=== PATIENT | female | born 1940 | race Caucasian/White ===

== ENCOUNTER → 2017-10-22 12:15 | Outpatient (CLI) | payer MEDICARE, SELFPAY ==
[2017-10-22 13:27] LABS: Hemoglobin A1c 6.8 % (4.2-6.3)
== END ==
PROVIDERS: Family Provider Family Medicine; PCP Family Medicine; Visit Provider Family Medicine
DX: E11.9 Type 2 diabetes mellitus without complications (principal)
CPT/HCPCS: 36415; 83036

== ENCOUNTER → 2018-03-17 20:09 | Outpatient (CLI) | payer MEDICARE, SELFPAY | PROVIDERS: Family Provider Family Medicine; PCP Family Medicine; Visit Provider Clinical Nurse Specialist Acute Care | DX: G47.10 Hypersomnia, unspecified (principal) | CPT/HCPCS: 95810 ==

== ENCOUNTER → 2018-04-10 07:08 | Outpatient (CLI) | payer MEDICARE, SELFPAY ==
[2018-04-10 08:36] LABS: Hemoglobin A1c 6.4 % (4.2-6.3)
[2018-04-10 08:43] LABS: ALB/GLOB Ratio 0.9 RATIO (0.9-2.4); AST(SGOT) 13 U/L (15-37); Alanine Aminotransfer ALT/SGPT 9 U/L (13-56); Albumin, Serum 3.6 g/dL (3.2-5.0); Alkaline Phosphatase 67 U/L (45-117); Anion Gap 11 (5-15); BUN 30 mg/dL (7-18); BUN/Creat Ratio 27.3 RATIO (10-20); Chloride 104 mmol/L (98-107); Cholesterol 124 mg/dL (200); EST Glomerular Filtration Rate 51 mL/min (>60); Est Glom Filt Rate - Afr Amer 62 mL/min (>60); Glucose 114 mg/dL (74-106); High Density Lipoprotein 43 mg/dL; Potassium 4.5 mmol/L (3.5-5.1); Protein, Total 7.6 g/dL (6.4-8.2); Sodium Level 138 mmol/L (136-145); Triglycerides 229 mg/dL; Very Low Density Lipoprotein 46 mg/dL (5-40)
== END ==
PROVIDERS: Family Provider Family Medicine; PCP Family Medicine; Visit Provider Family Medicine
DX: E11.9 Type 2 diabetes mellitus without complications (principal); E78.5 Hyperlipidemia, unspecified; I10 Essential (primary) hypertension
CPT/HCPCS: 36415; 80053; 80061; 83036

== ENCOUNTER → 2018-04-28 20:21 | Outpatient (CLI) | payer MEDICARE, SELFPAY | PROVIDERS: Family Provider Family Medicine; PCP Family Medicine; Visit Provider Clinical Nurse Specialist Acute Care | DX: G47.33 Obstructive sleep apnea (adult) (pediatric) (principal) | CPT/HCPCS: 95810 ==

== ENCOUNTER → 2018-05-29 08:27 | Outpatient (CLI) | payer MEDICARE, SELFPAY ==
--- NOTE | 2018-05-29 08:29 | BI_ITS ---
MAMMOGRAPHY - BILATERAL DIAGNOSTIC REASON FOR EXAM: Female, 77 years old. Remote right lumpectomy with radiation treatment. Palpable abnormality at the surgical site. PERTINENT HISTORY: Personal history of breast cancer. TECHNIQUE: Digital bilateral breast ria (3D mammographic acquisition) in the CC and MLO projections. 2-D mediolateral oblique (MLO) and craniocaudad (CC) views of both breasts were obtained. CAD: Full Field Digital Mammography with Computer Added Detection was performed. COMPARISON: Comparison is made with prior examination in June 02, 2017. FINDINGS: Breast Composition: The breasts are almost entirely fatty. There is a 2.4 cm x 1.9 cm ill-defined nodular density with dense calcifications in the deep upper lateral portion of the right breast. This corresponds to the lumpectomy site. This most likely represents postoperative scarring. Since prior study, this appears to be denser and slightly enlarged. Correlation with ultrasound is recommended. No other significant abnormalities are identified. BI/DIAG MAMM W/CAD, BILAT IMPRESSION: Slight enlargement and increased density of the postlumpectomy site in the deep axillary region of the right breast. Correlation with ultrasound is recommended. ASSESSMENT CATEGORY: BIRADS Category 0: Incomplete. Need additional imaging evaluation. A letter regarding these results will be sent to the patient by the facility within 30 days. Approximately 10% of breast cancers are not detected by mammography. A normal mammogram should not delay biopsy of a clinically suspicious abnormality. Electronically Signed: Missael Munoz MD at 13:26 EDT Tel [phone], Service support ,
--- NOTE | 2018-05-29 09:28 | US_ITS ---
STUDY: ULTRASOUND BREAST - RIGHT REASON FOR EXAM: Female, 77 years old. Abnormal screening mammogram. Palpable abnormality in the area of prior lumpectomy. TECHNIQUE: Axial and longitudinal images of the RIGHT breast were performed with a high resolution ultrasound transducer. COMPARISON: Comparison is made with prior mammogram done earlier in the day and prior mammogram dated June 04, 2017. FINDINGS: RIGHT Breast: There is a 2.7 cm x 2.9 cm x 2.1 cm irregular ill-defined hypoechoic nodule with posterior acoustical shadowing at the 10:00 position breast at 4 cm from the nipple. This corresponds to the prior lumpectomy site. A biopsy is recommended. US/Breast Limited Unilateral IMPRESSION: Irregular hypoechoic mass with posterior acoustical shadowing at the 10:00 position breast at 4 cm from the nipple. A biopsy is recommended for further evaluation. ASSESSMENT CATEGORY: BIRADS Category 4: Suspicious - Biopsy Should Be Considered. A letter regarding these results will be sent to the patient by the facility within 30 days. Electronically Signed: Missael Munoz MD at 11:30 EDT Tel [phone], Service support ,
== END ==
PROVIDERS: Family Provider Family Medicine; PCP Family Medicine; Referring Provider Family Medicine; Visit Provider Family Medicine
DX: N63.12 Unspecified lump in the right breast, upper inner quadrant (principal)
CPT/HCPCS: 76642; 77062; 77066; G0279

== ENCOUNTER → 2018-12-30 | Outpatient (CLI) | payer MEDICARE, SELFPAY ==
[2018-12-30 08:40] VITALS: BMI 26.5
[2018-12-30 12:27] LABS: Hematocrit 34.8 % (37-47); Hemoglobin 10.6 g/dl (12.0-15.0); Mean Corp Hgb Conc 30.5 g/gl (32-36); Mean Corpuscular Hgb 22.4 pg (27.0-32.0); Mean Corpuscular Volume 73.4 fL (81-99); Mean Platelet Vol. 9.8 fl (6.2-12.0); Platelet Count 289 K/mm3 (150-450); RBC Distribution Width CV 17.1 % (11.6-14.6); RBC Distribution Width SD 44.8 fl (35.1-43.9); Red Blood Count 4.74 M/mm3 (4.2-5.4); Scan Indicated on CBC? Y/N YES- FLAGS NOTED; White Blood Count 8.8 K/mm3 (4.4-11.0)
[2018-12-30 12:41] LABS: ALB/GLOB Ratio 0.8 RATIO (0.9-2.4); AST(SGOT) 24 U/L (15-37); Alanine Aminotransfer ALT/SGPT 21 U/L (13-56); Albumin, Serum 3.6 g/dL (3.2-5.0); Alkaline Phosphatase 82 U/L (45-117); Anion Gap 9 (5-15); BUN 20 mg/dL (7-18); Calcium,Total 9.3 mg/dL (8.5-10.1); Chloride 104 mmol/L (98-107); Cholesterol 142 mg/dL (200); Creatinine, Serum 1.05 mg/dL (0.55-1.02); EST Glomerular Filtration Rate 54 mL/min (>60); Est Glom Filt Rate - Afr Amer 65 mL/min (>60); Globulin 4.4 g/dL (2.2-4.2); Glucose 118 mg/dL (74-106); High Density Lipoprotein 47 mg/dL; Potassium 5.1 mmol/L (3.5-5.1); Sodium Level 138 mmol/L (136-145); Triglycerides 173 mg/dL; Very Low Density Lipoprotein 35 mg/dL (5-40)
== END | disposition home or self-care (01) ==
PROVIDERS: Family Provider Family Medicine; PCP Family Medicine; Visit Provider Family Medicine
DX: G20 Parkinson's disease (principal); E78.5 Hyperlipidemia, unspecified
CPT/HCPCS: 36415; 80053; 80061; 85027

== ENCOUNTER → 2019-05-31 09:07 | Outpatient (CLI) | payer MEDICARE, SELFPAY ==
[2019-05-12 15:19] VITALS: BMI 26.5
--- NOTE | 2019-05-31 09:11 | EKG12_ITS ---
Test Reason : IRREG, HEART RATE Blood Pressure : / mmHG Vent. Rate : 067 BPM Atrial Rate : 067 BPM P-R Int : 150 ms QRS Dur : 072 ms QT Int : 422 ms P-R-T Axes : 002 -27 041 degrees QTc Int : 445 ms Normal sinus rhythm Normal ECG Confirmed by GIOVANA GARCIA, JD ([id number]), film and video editor SHARI DUNBAR ([id number]) on 06/01/2019 8:42:44 AM Referred By: RO Bryson Confirmed By:JD AKHTAR MD
== END ==
PROVIDERS: Family Provider Family Medicine; PCP Family Medicine; Referring Provider Clinical Nurse Specialist Acute Care; Visit Provider Clinical Nurse Specialist Acute Care
DX: I49.9 Cardiac arrhythmia, unspecified (principal)
CPT/HCPCS: 93005

== ENCOUNTER → 2019-06-30 09:15 | Outpatient (CLI) | payer MEDICARE, SELFPAY ==
[2019-06-30 08:49] VITALS: BMI 26.5
[2019-06-30 12:44] LABS: Absolute Lymphocyte Count 2.31 X10^3/uL (0.83-4.51); Absolute Neutrophil Count 4.2 X10^3/uL (2.0-7.7); Basophil# 0.05 X10^3/uL; Basophil% 0.7 % (0-1); Eosinophil# 0.11 X10^3/uL; Eosinophils% 1.5 % (0-5); Hematocrit 41.1 % (37-47); Hemoglobin 12.5 g/dL (12.0-15.0); Lymphocyte # 2.31 X10^3/ul (4.0); Lymphocyte % 31.1 % (19-41); Mean Corp Hgb Conc 30.4 g/dL (32-36); Mean Corpuscular Hgb 25.2 pg (27.0-32.0); Mean Corpuscular Volume 82.7 fL (81-99); Monocyte# 0.69 X10^3/uL; Monocyte% 9.3 % (0-10); NRBC Flagged by Analyzer 0 % (0-5); Neutrophil # 4.23 X10^3/uL (2.7-7.7); Neutrophil % 56.9 % (47-70); Platelet Count 212 K/mm3 (150-450); RBC Distribution Width CV 16.9 % (11.6-14.6); RBC Distribution Width SD 50.7 fl (35.1-43.9); Red Blood Count 4.97 M/mm3 (4.2-5.4); White Blood Count 7.4 K/mm3 (4.4-11.0)
[2019-06-30 13:09] LABS: Hemoglobin A1c 6.4 % (4.2-6.3)
[2019-06-30 13:25] LABS: ALB/GLOB Ratio 0.9 RATIO (0.9-2.4); AST(SGOT) 17 U/L (15-37); Alanine Aminotransfer ALT/SGPT 22 U/L (13-56); Albumin, Serum 3.9 g/dL (3.2-5.0); Alkaline Phosphatase 72 U/L (45-117); Anion Gap 9 (5-15); BUN 29 mg/dL (7-18); BUN/Creat Ratio 26.9 RATIO (10-20); Calcium,Total 9.5 mg/dL (8.5-10.1); Chloride 105 mmol/L (98-107); Cholesterol 169 mg/dL (200); Creatinine, Serum 1.08 mg/dL (0.55-1.02); EST Glomerular Filtration Rate 52 mL/min (>60); Est Glom Filt Rate - Afr Amer 63 mL/min (>60); Globulin 4.3 g/dL (2.2-4.2); Glucose 123 mg/dL (74-106); High Density Lipoprotein 53 mg/dL; Potassium 4.3 mmol/L (3.5-5.1); Protein, Total 8.2 g/dL (6.4-8.2); Sodium Level 137 mmol/L (136-145); Thyroid Stim Hormone (TSH) 1.46 uIU/mL (0.358-3.74); Triglycerides 239 mg/dL; Very Low Density Lipoprotein 48 mg/dL (5-40)
== END ==
PROVIDERS: Family Provider Family Medicine; PCP Family Medicine; Visit Provider Family Medicine
DX: E11.9 Type 2 diabetes mellitus without complications (principal); D64.9 Anemia, unspecified; I10 Essential (primary) hypertension; R53.83 Other fatigue
CPT/HCPCS: 36415; 80053; 80061; 83036; 84443; 85025

== ENCOUNTER → 2020-01-25 09:27 | Outpatient (CLI) | payer MEDICARE, SELFPAY ==
[2020-01-25 09:05] VITALS: BMI 26.5
[2020-01-25 09:34] LABS: Bacteria 0 SEEN /hpf (None Seen); Mucous, Urine 0 SEEN /hpf (<or=2+); Red Blood Cells-Urine 0 SEEN /hpf (0-5); White Blood Cells 0 SEEN /hpf (0-5)
[2020-01-25 12:51] LABS: Color, Urine Yellow (Yellow); Glucose, Dipstick Normal (Normal); Ketone-Dipstick Negative (Negative); Leukocyte Esterase-Dipstick 100 /ul (Negative); Nitrite-Dipstick Negative (Negative); Occult Blood-Urine 10 /ul (Negative); Protein-Dipstick 15 mg/dl (Negative); Specific Gravity, Urine 1.015 (1.002-1.030); Urine Bilirubin Dipstick Negative (Negative); Urine Clarity Sl. Cloudy (Clear); Urine Urobilinogen Normal (Normal)
[2020-01-25 13:04] LABS: Squamous Epithelial Cells - UA 0-5 SEEN /hpf (5-10)
== END ==
PROVIDERS: PCP Family Medicine; Referring Provider Family Medicine; Visit Provider Family Medicine
DX: R30.0 Dysuria (principal)
CPT/HCPCS: 81001

== ENCOUNTER → 2020-04-25 08:48 | Outpatient (CLI) | payer MEDICARE, SELFPAY ==
[2020-04-25 08:25] VITALS: BMI 31.6
[2020-04-25 08:50] LABS: Mucous, Urine 0 SEEN /hpf (<or=2+); Red Blood Cells-Urine 0 SEEN /hpf (0-5)
[2020-04-25 12:02] LABS: Color, Urine Straw (Yellow); Glucose, Dipstick Normal (Normal); Ketone-Dipstick Negative (Negative); Leukocyte Esterase-Dipstick 25 /ul (Negative); Nitrite-Dipstick Negative (Negative); Occult Blood-Urine Negative /ul (Negative); Protein-Dipstick Negative (Negative); Specific Gravity, Urine 1.015 (1.002-1.030); Urine Bilirubin Dipstick Negative (Negative); Urine Clarity Clear (Clear); Urine Urobilinogen Normal (Normal)
[2020-04-25 12:11] LABS: Bacteria 1+ /hpf (None Seen); Squamous Epithelial Cells - UA 0-5 SEEN /hpf (5-10); White Blood Cells 0-5 SEEN /hpf (0-5)
== END ==
PROVIDERS: PCP Family Medicine; Referring Provider Family Medicine; Visit Provider Family Medicine
DX: R30.0 Dysuria (principal)
CPT/HCPCS: 81001; 87086; 87088

== ENCOUNTER 2020-09-10 22:55 | Observation (INO) | payer MEDICARE, SELFPAY ==
[2020-08-08 14:08] VITALS: BMI 29.6
[2020-09-10 22:56] VITALS: BP 149/40; PULSE 90; RESP 18; TEMP 35.9; O2SAT 98; BMI 30.7
--- NOTE | 2020-09-10 23:08 | CT_ITS ---
HISTORY: BACK PAIN X 5 DAYS, N/T IN LEGS, HX PARKINSON'S, DIAB, HTN ADDITIONAL HISTORY: None provided. EXAMINATION/TECHNIQUE: CT Abdomen And Pelvis W/O Contrast Injection Enteric contrast was not given. Number of images including paperwork: 484. A radiation dose optimization technique was used for this scan. COMPARISON: No previous abdominal CT. CT chest 06/15/2012. FINDINGS: Evaluation of the abdominopelvic organs is limited in the absence of contrast. LOWER THORAX: No consolidation or pleural effusion. Minimal dependent atelectasis. Coronary calcification. Small hiatal hernia. Calcifications partially visualized in the lateral aspect of the right breast in region of previous collection. LIVER: No concerning focal lesion. Left lobe hepatic cyst. GALLBLADDER: No radiopaque calculi. BILE DUCTS: No significant biliary dilatation. SPLEEN: Unremarkable. PANCREAS: Unremarkable. ADRENAL GLANDS: Unremarkable. KIDNEYS/URETERS: Nonobstructing bilateral renal calculi measuring 3 mm on the right and 5 x 7 mm on the left. BOWEL: No bowel obstruction. No significant bowel wall thickening. No localized inflammation. Colonic diverticulosis. APPENDIX: No evidence of appendicitis. FREE FLUID: No significant free fluid. FREE AIR: None. LYMPH NODES: No pathologic appearing adenopathy. PERITONEUM, RETROPERITONEUM AND MESENTERY: Otherwise unremarkable. VASCULATURE: Unremarkable as imaged. ABDOMINAL WALL: Unremarkable. PELVIS: Bladder decompressed by Tipton catheter. Hysterectomy. OSSEOUS AND SOFT TISSUE STRUCTURES: No acute skeletal findings. Degenerative changes. CT/Abdomen/Pelvis without Cont IMPRESSION: 1. No acute abdominopelvic abnormality. 2. Nonobstructing bilateral renal calculi. 3. Nonspecific density with calcifications in the right breast. Follow-up dedicated breast imaging recommended. 4. Additional findings above. Individualized dose optimization techniques were used for this CT. at 0012 Reported and signed by: Shandra Hinds MD Electronically Signed: Shandra Hinds MD at 0:12 EST Tel , Service support ,
--- NOTE | 2020-09-10 23:10 | ED.VISSUMM ---
- ER Visit Summary Date of Service: 09/10/20 Chief Complaint: [Back pain] History of Present Illness: The patient is a 80 F [presents to the emergency department complaint of back pain that started for 5 days ago. Patient states that she has had sciatica intermittently for many years and she states that this feels similar only more severe. Patient complaining of pain on both sides of her back and buttocks radiating down both legs. She denies weakness in extremities. She denies any change in bowel or bladder function. Patient was too painful tonight to ambulate. She denies any trauma. She denies abdominal pain. She denies fever or recent illness. She has had urinary frequency. Patient has history of diabetes, hypertension, high cholesterol, and Parkinson's.] Physical Examination: [HEENT-PERRLA, EOMI. Cranial nerves II through XII grossly intact. TMs clear. Mucous membranes moist. No adenopathy. Cardiovascular-regular rate and rhythm without murmur or ectopy Lungs-clear to auscultation, chest wall stable without crepitus or subcu emphysema Abdomen-normoactive bowel sounds, soft, nontender, no rebound or rigidity, no peritoneal signs. Back exam-no significant tenderness over the thoracic or lumbar spine. Patient has some mild CVA tenderness bilaterally. Patient has some tenderness into both buttocks or area of piriformis muscles. She has negative straight leg raises. Deep tendon reflexes are plus out of 4 bilaterally at the patella and Achilles. Patient has normal 5 extension. Patient has normal sensation to light touch. Extremities-intact ?4, normal range of motion, normal pulses, atraumatic] Test Results: [BC with differential white of 8.8, hemoglobin 13, hematocrit 40, platelet 71. Chemistries unremarkable. Urinalysis was normal. CT flank showed a calcification in the right breast and nephrolithiasis without urolithiasis. Nothing else significant on exam.] Emergency Department Course and Treatment: [The line established. Patient was medicated with morphine and Zofran. Patient continued to experience significant pain was given a second dose of morphine.] Treatment Plan: [Admit for pain control and patient may need further imaging to evaluate further such as possibly MRI of the lumbar spine.] Disposition: [Admit] Impression: [Intractable back pain] This note was generated with [employer] software. It may contain incorrect words, spelling, and punctuation that were not noted in review of the chart prior to signing ED Disposition - Plan for ED Patient: Referrals: Otis Lagos DO [Primary Care Provider] -
[2020-09-10 23:25] LABS: Mucous, Urine 0 SEEN /hpf (<or=2+); Squamous Epithelial Cells - UA 0 SEEN /hpf (5-10); White Blood Cells 0 SEEN /hpf (0-5)
[2020-09-10 23:32] LABS: Color, Urine Yellow (Yellow); Glucose, Dipstick 100 mg/dl (Normal); Ketone-Dipstick 5 mg/dl (Negative); Leukocyte Esterase-Dipstick Negative /ul (Negative); Nitrite-Dipstick Negative (Negative); Occult Blood-Urine 50 /ul (Negative); Protein-Dipstick 100 mg/dl (Negative); Specific Gravity, Urine 1.015 (1.002-1.030); Urine Bilirubin Dipstick Negative (Negative); Urine Clarity Clear (Clear); Urine Urobilinogen Normal (Normal)
[2020-09-10] MEDS: Morphine 4 MG/ML Syringe IV (23:35)
[2020-09-10] MEDS: 0.9% Normal Saline 1,000 ML 150 ML IV (23:35)
[2020-09-10] MEDS: Ondansetron 4 MG/2 ML Vial IV (23:35)
[2020-09-10 23:38] LABS: Absolute Lymphocyte Count 0.66 X10^3/uL (0.83-4.51); Absolute Neutrophil Count 7.4 X10^3/uL (2.0-7.7); Basophil# 0.02 X10^3/uL; Basophil% 0.2 % (0-1); Eosinophil# 0.04 X10^3/uL; Eosinophils% 0.5 % (0-5); Hematocrit 40.3 % (37-47); Hemoglobin 13.1 g/dL (12.0-15.0); Lymphocyte # 0.66 X10^3/ul (4.0); Lymphocyte % 7.5 % (19-41); Mean Corp Hgb Conc 32.5 g/dL (32-36); Mean Corpuscular Hgb 26.4 pg (27.0-32.0); Mean Corpuscular Volume 81.1 fL (81-99); Mean Platelet Vol. 9.2 fl (6.2-12.0); Monocyte% 6.8 % (0-10); NRBC Flagged by Analyzer 0 % (0-5); Neutrophil # 7.43 X10^3/uL (2.7-7.7); Neutrophil % 84.4 % (47-70); Platelet Count 171 K/mm3 (150-450); RBC Distribution Width CV 15.6 % (11.6-14.6); RBC Distribution Width SD 45.9 fl (35.1-43.9); Red Blood Count 4.97 M/mm3 (4.2-5.4); White Blood Count 8.8 K/mm3 (4.4-11.0)
[2020-09-10 23:38] LABS: Bacteria 3+ /hpf (None Seen); Red Blood Cells-Urine 0-5 SEEN /hpf (0-5)
[2020-09-10 23:40] VITALS: BP 149/40
[2020-09-10 23:50] LABS: Anion Gap 11 (5-15); BUN 19 mg/dL (7-18); BUN/Creat Ratio 20.4 RATIO (10-20); Calcium,Total 9.1 mg/dL (8.5-10.1); Chloride 104 mmol/L (98-107); Creatinine, Serum 0.93 mg/dL (0.55-1.02); EST Glomerular Filtration Rate 61 mL/min (>60); Est Glom Filt Rate - Afr Amer 74 mL/min (>60); Estimated Creatinine Clearance 36.89 ml/min; Glucose 215 mg/dL (74-106); Potassium 3.7 mmol/L (3.5-5.1); Sodium Level 137 mmol/L (136-145)
[2020-09-11] VITALS (10 sets, daily range): BP systolic 150–205; BP diastolic 77–92; PULSE 75–85; RESP 16–18; TEMP 36.6–36.7; O2SAT 95–97; BMI 28.7; BMI 28.8
[2020-09-11] MEDS: Morphine 4 MG/ML Syringe IV (00:35)
--- NOTE | 2020-09-11 00:47 | HP.PCM_ITS ---
History of Present Illness Date of Admission: 09/11/20 Chief Complaint: back pain The patient is a 80 year old F with a PMH as outlined who was admitted with a complaint of back pain that started 5 days prior to admission. She has a history of sciatica, and said pain was in both hips, radiating down both legs. She denied any bladder or bowel incontinence. She came in to the ED because she was having more severe pain than usual. She denied any history of trauma. Review of systems was otherwise negative. Vitals in the ED showed temperature of 96.7 with blood pressure of 149/40 which went up to 185/80 9 L, pulse rate was 85 and respiratory rate was 18. She was saturating 87% on room air. Chemistry was essentially unremarkable and CBC was unremarkable. CT of the abdomen and pelvis showed no acute abdominopelvic pathology and no evidence of any kidney stones. She did have nonspecific density with calcifications in the right breast which were picked up on the CAT scan and follow-up dedicated breast imaging was recommended. No imaging was done of the lumbar spine. Pain was not responsive to pain medication, so she is being admitted to be managed for intractable back pain.[] Past Medical History Past Medical History (Chronic Problems): Chronic Problems (Last Reviewed 08/08/20 @ 14:[address] Otis Lagos DO) Parkinson disease (Chronic) Neuropathy (Chronic) Hyperlipidemia (Chronic) Hypertension (Chronic) Heart disease (Chronic) Hearing deficit (Chronic) Headache (Chronic) H/O emotional problems (Chronic) Diabetes (Chronic) Cataract (Chronic) Breast CA (Chronic) Arthralgia (Chronic) Medical History: Medical History (Last Reviewed 08/08/20 @ 14:[address] Otis Lagos DO) Parkinson disease (Chronic) G20 Neuropathy (Chronic) G62.9 Hyperlipidemia (Chronic) E78.5 Hypertension (Chronic) I10 Heart disease (Chronic) I51.9 Hearing deficit (Chronic) H91.90 Headache (Chronic) R51 H/O emotional problems (Chronic) F48.9 Diabetes (Chronic) E11.9 Cataract (Chronic) H26.9 Breast CA (Chronic) C50.919 Arthralgia (Chronic) M25.50 CATARACT REMOVAL Allergies amlodipine [From Norvasc] Allergy (Severe, Verified 09/10/20 22:56) Swelling celecoxib [From Celebrex] Allergy (Severe, Verified 09/10/20 22:56) Rash Home Medications: Ambulatory Orders Medication Instructions Recorded meclizine 12.5 mg tablet 12.5 mg PO TID PRN tab 08/31/18 sumatriptan succinate 50 mg tablet 50 mg PO ONCE PRN tab 08/31/18 clonazepam 0.125 mg disintegrating 0.125 mg PO QHS tab 01/25/20 tablet hydrochlorothiazide 12.5 mg capsule 12.5 mg PO QAM PRN cap 04/25/20 multivitamin 1 cap PO DAILY 04/25/20 apomorphine 10 mg/mL subcutaneous 0.3 ml SC DAILY ml 08/08/20 cartridge metformin 1,000 mg tablet 1,000 mg PO DAILY #90 tab 08/08/20 metoprolol succinate 100 mg 100 mg PO QDAY #90 tab 08/08/20 tablet,extended release 24 hr olmesartan 40 mg tablet 40 mg PO DAILY #90 tab 08/08/20 Carbidopa/Levodopa [Carbidopa-Levo 1 ea PO TID 09/10/20 ER 25-100 Tab] Ezetimibe/Simvastatin 1 tab PO DAILY 09/10/20 [Ezetimibe-Simvastatin 10-40 mg] Trimethobenzamide HCl [Tigan] 300 mg PO TID 09/10/20 Surgical History: Surgical History (Last Reviewed 08/08/20 @ 14:[address] Otis Lagos DO) History of breast biopsy Z98.890 2010, 07/08/18 History of hysterectomy Z90.710 Psychiatric History: No pertinent psych hx Lives: With Family Smoking Status: Never smoker Tobacco Use: Non-smoker Alcohol: None Drugs: None - *Family History Maternal Family History: Family History (Last Reviewed 08/08/20 @ 14:[address] Otis Lagos DO) Mother Arthritis Diabetes Heart disease Hypertension Hyperlipidemia Mental disorder Review of Systems Constitutional: Denies: Chills, Fever, Weight Change HEENT: Denies: Head Aches, Sinus Congestion, Sinus Drainage Cardiovascular: Denies: Chest Pain, Palpitations Respiratory: Denies: Cough, Shortness of Breath, Shortness of breath at rest, Sputum production Gastrointestinal: Denies: Abdominal Pain, Nausea, Vomiting Genitourinary: Denies: Dysuria Musculoskeletal: Reports: Back Pain. Denies: Joint Pain, Joint Tenderness Skin: Denies: Rash, Wounds Neurological: Denies: Numbness, Tingling, Focal weakness Psychiatric: Denies: Anxiety, Depression, Homicidal Ideations, Suicidal Ideations Hematologic/ Lymphatic: Denies: Easy Bruising, Easy Bleeding VTE Information - Inpt Only VTE Present on Admission: No VTE Pharm Prophylaxis ordered?: Yes - Physical Exam Vitals/I&O's: Vital Signs Temp Pulse Resp BP Pulse Ox 96.7 F L 85 18 185/89 H 97 09/10/20 22:56 09/11/20 00:31 09/11/20 00:31 09/11/20 00:31 09/11/20 00:31 Oxygen Delivery Method Room Air Weight: 168 lb Body Mass Index (BMI) 30.7 General: Alert, Oriented x3, Cooperative, No apparent distress HEENT: Atraumatic, PERRLA, EOMI, Normocephalic Oral: Moist Mucosa Neck: Supple, No JVD, Negative Carotid Bruits Lungs: Clear to auscultation, Normal air movement, No rhonchi, No wheeze, No rales Cardiovascular: Regular rate, Regular Rhythm, Normal S1, Normal S2, No murmurs Abdomen: Bowel Sounds Present, Soft, Non Tender, Non-Distended, No Hepato- splenomegaly Extremities: No edema, Capillary Refill Less than 3 Seconds Skin: No rashes, No breakdown Musculoskeletal: No Tenderness to Palpation of Joints or Extremities Lymphatic: No Cervical, Supraclavicular, or Inguinal Adenopathy Neurological: Cranial nerves II-XII grossly intact, Neuro grossly intact, Motor Exam 5/5 strength throughout Psych/Mental Status: Normal Affect, Appropriate, Alert and oriented to time, place, person, mood and affect Laboratory Results 09/10/20 23:20: Urine Color Yellow, Urine Clarity Clear, Urine pH 6.0, Ur Specific [place] 1.015, Urine Protein 100 H, Urine Glucose (UA) 100 H, Urine Ketones 5 H, Urine Occult Blood 50 H, Urine Nitrite Negative, Urine Bilirubin Negative, Urine Urobilinogen Normal, Ur Leukocyte Esterase Negative, Urine RBC 0-5 SEEN, Urine WBC 0 SEEN, Ur Squamous Epith Cells 0 SEEN, Urine Bacteria 3+, Urine Mucus 0 SEEN 09/10/20 23:25: WBC 8.8, RBC 4.97, Hgb 13.1, Hct 40.3, MCV 81.1, MCH 26.4 L, MCHC 32.5, RDW Std Deviation 45.9 H, RDW Coeff of Dwayne 15.6 H, Plt Count 171, MPV 9.2, Immature Gran % (Auto) 0.600, Neut % (Auto) 84.4 H, Lymph % (Auto) 7.5 L, [place] % (Auto) 6.8, Eos % (Auto) 0.5, Baso % (Auto) 0.2, Absolute Neuts (auto) 7.4, Absolute Lymphs (auto) 0.66 L, Nucleated RBC % 0 09/10/20 23:25: Sodium 137, Potassium 3.7, Chloride 104, Carbon Dioxide 22.0, Anion Gap 11, BUN 19 H, Creatinine 0.93, Estim Creat Clear Calc 36.89, Est GFR (MDRD) Af Amer 74, Est GFR (MDRD) Non-Af 61, BUN/Creatinine Ratio 20.4 H, Glucose 215 H, Calcium 9.1 Diagnostic Data Abdomen/Pelvis CT 09/10/20 23:08 IMPRESSION: 1. No acute abdominopelvic abnormality. 2. Nonobstructing bilateral renal calculi. 3. Nonspecific density with calcifications in the right breast. Follow-up dedicated breast imaging recommended. 4. Additional findings above. Individualized dose optimization techniques were used for this CT. at 0012 Reported and signed by: Shandra Hinds MD Electronically Signed: Shandra Hinds MD at 0:12 EST Tel , Service support , Current Medications Sodium Chloride () 1,000 mls @ 150 mls/hr IV .[id number] BENJAMIN Last Admin: 09/10/20 23:35 Dose: 150 mls/hr Documented by: Assessment/Plan 80 y/o admitted with a complaint of back pain #Intractable back pain * She does have a history of sciatica * CT of the abdomen and pelvis done was negative for any acute abdominal pelvic abnormality. Will get MRI of the lumbar spine to evaluate. * Admit to MedSurg. * IV morphine as needed as well as p.o. Tylenol and p.o. oxycodone as needed for pain * PT OT consult. Fall precautions. * #History of Parkinson's disease: On carbidopa levodopa #Hyperlipidemia: On simvastatin and ezetimibe #Hypertension: On hydrochlorothiazide and metoprolol as well as olmesartan #Type 2 diabetes mellitus: On Metformin. Insulin sliding scale. Checks AC at bedtime. DVT prophylaxis; lovenox Code status: full code * Patient counseled extensively about different types of CODE STATUS including full code, DNR CCA and DNR CCA. Patient elects to be full code. * Total uowx-ut-oqol time 17 minutes. Inpatient E&M: 33137 Init Hosp L3 Procedures: 91866 Advncd Care Plan 30 Min
[2020-09-11] MEDS: Acetaminophen 325 MG Tablet 650 MG PO ×2 (02:39→10:14)
[2020-09-11] MEDS: oxyCODONE 5 MG Tablet PO ×2 (02:39→10:14)
[2020-09-11] MEDS: Morphine 2 MG/ML Syringe IV ×2 (04:50→11:19)
--- NOTE | 2020-09-11 05:55 | MRI_ITS ---
STUDY: MRI LUMBAR SPINE WITH AND WITHOUT CONTRAST REASON FOR EXAM: Female, 80 years old. severe back and bilat leg pain x 5 days TECHNIQUE: Standardized fat and water weighted pulse sequences were obtained in the sagittal and axial planes. IV 14cc dotarem was administered for the contrast portion of the examination. COMPARISON: None FINDINGS: Normal lumbar lordosis. There is no substantial scoliosis. Normal conus medullaris that terminates at the L1. L1-2: There is moderate disc space narrowing and endplates spondylosis. Mild disc bulge and mild facet arthropathy without significant central canal or foraminal stenosis. L2-3: There is moderate disc space narrowing and endplates spondylosis. Moderate disc bulge and facet arthropathy with mild central canal stenosis. Mild right and mild left foraminal stenosis. L3-4: There is mild disc space narrowing and endplates spondylosis. Moderate facet arthropathy with grade 1 anterolisthesis and disc bulge with mild central canal stenosis. Mild right and mild left foraminal stenosis. There is minimal 1 anterolisthesis. L4-5: There is mild disc space narrowing and endplates spondylosis. Severe facet arthropathy with grade 1 anterolisthesis and disc bulge with mild central canal stenosis. Mild right and mild left foraminal stenosis. There is minimal 1 anterolisthesis. L5-S1: There is mild disc space narrowing and endplates spondylosis. Moderate disc osteophyte complex and facet arthropathy with mild central canal stenosis. Mild right and mild left foraminal stenosis. Normal visualized sacral ala. MRI/Spine Lumbar W/WO Contrast IMPRESSION: Moderate/severe multilevel degenerative changes. Electronically Signed: Alyssa Osei MD at 15:50 EST Tel , Service support ,
[2020-09-11] MEDS: Carbidopa/Levodopa 25/100 Tablet PO ×3 (06:32→18:27)
[2020-09-11] MEDS: 0.9% Normal Saline 1,000 ML 150 ML IV ×3 (06:33→21:14)
[2020-09-11 06:41] LABS: Bedside Glucose 141 mg/dL (70-110)
[2020-09-11 07:08] LABS: Absolute Lymphocyte Count 0.79 X10^3/uL (0.83-4.51); Absolute Neutrophil Count 3.4 X10^3/uL (2.0-7.7); Basophil# 0.02 X10^3/uL; Basophil% 0.4 % (0-1); Eosinophil# 0.04 X10^3/uL; Eosinophils% 0.8 % (0-5); Hematocrit 35.9 % (37-47); Hemoglobin 11.4 g/dL (12.0-15.0); Lymphocyte # 0.79 X10^3/ul (4.0); Lymphocyte % 16.1 % (19-41); Mean Corp Hgb Conc 31.8 g/dL (32-36); Mean Corpuscular Hgb 26.3 pg (27.0-32.0); Mean Corpuscular Volume 82.7 fL (81-99); Mean Platelet Vol. 9.2 fl (6.2-12.0); Monocyte# 0.58 X10^3/uL; Monocyte% 11.8 % (0-10); NRBC Flagged by Analyzer 0 % (0-5); Neutrophil # 3.44 X10^3/uL (2.7-7.7); Neutrophil % 70.3 % (47-70); Platelet Count 145 K/mm3 (150-450); RBC Distribution Width CV 15.3 % (11.6-14.6); RBC Distribution Width SD 46.6 fl (35.1-43.9); Red Blood Count 4.34 M/mm3 (4.2-5.4); White Blood Count 4.9 K/mm3 (4.4-11.0)
[2020-09-11 07:38] LABS: Anion Gap 6 (5-15); BUN 17 mg/dL (7-18); BUN/Creat Ratio 24.7 RATIO (10-20); Calcium,Total 8.4 mg/dL (8.5-10.1); Chloride 108 mmol/L (98-107); Creatinine, Serum 0.69 mg/dL (0.55-1.02); EST Glomerular Filtration Rate 87 mL/min (>60); Est Glom Filt Rate - Afr Amer 105 mL/min (>60); Glucose 135 mg/dL (74-106); Potassium 3.4 mmol/L (3.5-5.1); Sodium Level 139 mmol/L (136-145)
[2020-09-11] MEDS: Ezetimibe 10 MG Tablet PO (08:11)
[2020-09-11] MEDS: Losartan Potassium 100 MG Tablet PO (08:11)
[2020-09-11] MEDS: Metoprolol(XL)Succ 100 MG Tablet PO (08:11)
[2020-09-11] MEDS: Multivitamins,Therapeutic Tablet 1 TABLET PO (08:11)
[2020-09-11] MEDS: Enoxaparin 40 MG/0.4 ML Syringe SC (08:11)
--- NOTE | 2020-09-11 11:45 | CASEMGMT ---
RN CM attempted to complete assessment at this time. Patient out of room at this time. CM will attempt to complete assessment at later time.
[2020-09-11] MEDS: Insulin Lispro 100 UNIT/ML INSULN.PEN SC ×3 (13:04→22:09)
[2020-09-11 13:26] LABS: Bedside Glucose 201 mg/dL (70-110)
[2020-09-11] MEDS: Glucerna Shake 120 ML LIQUID PO ×3 (14:28→21:18)
--- NOTE | 2020-09-11 16:44 | CHAPLAIN ---
Type of Pastoral Visit _x__ Initial Visit ___ Follow-up Visit ___ On-call Visit ___ General Patient Visit ___ Spiritual Assessment ___ Family Conference ___ Bereavement ___ Rapid Response ___ Code Blue ___ Other (describe below) Pastoral Care Referral From _x__ Patient ___ Family ___ Nurse ___ Physician ___ Spouter ___ Fabric Lay Out Worker ___ Other (describe below) Sacrament/Intervention _x__ Active listening ___ Anointing ___ Buddhism ___ Bereavement ___ Communion ___ Mariama exploration ___ _x__ Life review _x__ Prayer ___ Reconciliation ___ Sacrament of Sick _x__ Supportive presence ___ Wedding ___ Other (describe below) Pastoral Comments patient expresses appreciation for visit and time to talk
[2020-09-11] MEDS: dexAMETHasone 4 MG/ML Vial IV (17:24)
[2020-09-11 18:01] LABS: Bedside Glucose 183 mg/dL (70-110)
--- NOTE | 2020-09-11 18:16 | PCM.HOSP.N ---
Hospitalist Note Patient was seen and examined today, MRI of the lumbar spine was carried out which showed no evidence of severe spinal stenosis or large disc rupture, I placed the patient today on IV dexamethasone, she will be seen by physical therapy and she will be need to be reevaluated tomorrow. I talked briefly with pain management, I will have them see her tomorrow to see if they feel she would benefit from any injection such as an epidural or nerve block.
[2020-09-11] MEDS: Atorvastatin Calcium 20 MG Tablet PO (21:14)
[2020-09-11] MEDS: hydroCHLOROthiazide 12.5mg 12.5 MG PO (21:14)
[2020-09-11] MEDS: clonazePAM 0.5 MG Tablet 0.125 MG PO (21:19)
[2020-09-11 22:26] LABS: Bedside Glucose 243 mg/dL (70-110)
[2020-09-12] VITALS (16 sets, daily range): BP systolic 129–210; BP diastolic 74–94; PULSE 66–90; RESP 16–20; TEMP 36.4–36.9; O2SAT 94–99
[2020-09-12] MEDS: dexAMETHasone 4 MG/ML Vial IV ×3 (00:36→11:24)
[2020-09-12] MEDS: 0.9% Saline Lock 10 ML Syringe IV ×6 (00:36→21:32)
[2020-09-12] MEDS: 0.9% Normal Saline 1,000 ML 150 ML IV (04:03)
[2020-09-12] MEDS: hydrALAZINE 20 MG/ML Vial 5 MG IV ×2 (04:14→15:39)
[2020-09-12] MEDS: Acetaminophen 325 MG Tablet 650 MG PO (05:34)
[2020-09-12] MEDS: Insulin Lispro 100 UNIT/ML INSULN.PEN SC ×4 (06:36→21:32)
[2020-09-12 06:55] LABS: Bedside Glucose 205 mg/dL (70-110)
[2020-09-12] MEDS: Glucerna Shake 120 ML LIQUID PO ×3 (08:02→21:30)
[2020-09-12] MEDS: Enoxaparin 40 MG/0.4 ML Syringe SC (08:02)
[2020-09-12] MEDS: Multivitamins,Therapeutic Tablet 1 TABLET PO (08:03)
[2020-09-12] MEDS: Carbidopa/Levodopa 25/100 Tablet PO ×3 (08:03→17:20)
[2020-09-12] MEDS: Metoprolol(XL)Succ 100 MG Tablet PO (08:05)
[2020-09-12] MEDS: Ezetimibe 10 MG Tablet PO (08:07)
--- NOTE | 2020-09-12 08:09 | PN_ITS ---
Reason for Visit: Follow-up on intractable back pain/uncontrolled hypertension Subjective: Patient was seen and examined. Her pain is much controlled. Blood pressure has been uncontrolled. Discussed her care with Dr. Darby, pain management, patient will be going for epidural injection tomorrow Objective: Physical exam: General: Alert, Oriented x3, Cooperative, No apparent distress HEENT: Atraumatic, PERRLA, EOMI, Normocephalic Oral: Moist Mucosa Neck: Supple, No JVD, Negative Carotid Bruits Lungs: Clear to auscultation, Normal air movement, No rhonchi, No wheeze, No rales Cardiovascular: Regular rate, Regular Rhythm, Normal S1, Normal S2, No murmurs Abdomen: Bowel Sounds Present, Soft, Non Tender, Non-Distended, No Hepato- splenomegaly Extremities: No edema, Capillary Refill Less than 3 Seconds Skin: No rashes, No breakdown Musculoskeletal: No Tenderness to Palpation of Joints or Extremities Lymphatic: No Cervical, Supraclavicular, or Inguinal Adenopathy Neurological: Cranial nerves II-XII grossly intact, Neuro grossly intact, Motor Exam 5/5 strength throughout Psych/Mental Status: Normal Affect, Appropriate, Alert and oriented to time, place, person, mood and affect Vitals/I&O's: Vital Signs Temp Pulse Resp BP Pulse Ox 98.4 F 66 18 185/85 H 99 09/12/20 07:54 09/12/20 08:05 09/12/20 07:54 09/12/20 07:54 09/12/20 07:54 Oxygen Delivery Method Room Air Weight: 71.3 kg Body Mass Index (BMI) 28.7 Intake and Output for Last 24 Hours 09/10/20 09/11/20 09/12/20 23:59 23:59 23:59 Intake Total 4407.5 / 4407.5 1600 / 1600 Output Total 2475 / 2475 1400 / 1400 Balance 1932.5 / 1932.5 200 / 200 Laboratory Results 09/11/20 12:59: POC Glucose 201 H 09/11/20 17:12: POC Glucose 183 H 09/11/20 22:08: POC Glucose 243 H 09/12/20 06:36: POC Glucose 205 H Current Medications Acetaminophen (Acetaminophen 325 Mg Tablet) 650 mg PO Q6H PRN PRN PRN Reason: Pain Score 1-10/Temp > 100.7 F Last Admin: 09/12/20 05:34 Dose: 650 mg Documented by: Atorvastatin Calcium (Atorvastatin Calcium 20 Mg Tablet) 20 mg PO QHS [facility] Last Admin: 09/11/20 21:14 Dose: 20 mg Documented by: Carbidopa/Levodopa (Carbidopa/Levodopa 25/100 Tablet) 1 tablet PO TIDPC [facility] Last Admin: 09/12/20 08:03 Dose: 1 tablet Documented by: Clonazepam (Clonazepam 0.5 Mg Tablet) 0.125 mg PO QHS [facility] Last Admin: 09/11/20 21:19 Dose: 0.125 mg Documented by: Dexamethasone Sodium Phosphate (Dexamethasone 4 Mg/Ml Vial) 4 mg IV Q6 [facility] Last Admin: 09/12/20 05:34 Dose: 4 mg Documented by: Ezetimibe (Ezetimibe 10 Mg Tablet) 10 mg PO DAILY [facility] Last Admin: 09/12/20 08:07 Dose: 10 mg Documented by: Enoxaparin Sodium (Enoxaparin 40 Mg/0.4 Ml Syringe) 40 mg SC DAILY [facility] Last Admin: 09/12/20 08:02 Dose: 40 mg Documented by: Hydralazine HCl (Hydralazine 25 Mg Tablet) 25 mg PO BID [facility] Hydralazine HCl (Hydralazine 20 Mg/Ml Vial) 5 mg IV Q6H PRN PRN PRN Reason: SBP>160 OR DBP > 120 Hydrochlorothiazide (Hydrochlorothiazide 12.5mg) 12.5 mg PO DAILY PRN PRN PRN Reason: bp Last Admin: 09/11/20 21:14 Dose: 12.5 mg Documented by: Sodium Chloride () 250 mls @ 15 mls/hr IV .[id number] PRN PRN Reason: Saline Flush Sodium Chloride () 250 mls @ 15 mls/hr IV .[id number] PRN PRN Reason: Additional IVPB Infusion Insulin Human Lispro (Insulin Lispro 100 Unit/Ml Insuln.Pen) 0 unit SC [facility]; Protocol Last Admin: 09/12/20 06:36 Dose: 2 units Documented by: Losartan Potassium (Losartan Potassium 100 Mg Tablet) 100 mg PO DAILY [facility] Last Admin: 09/11/20 08:11 Dose: 100 mg Documented by: Meclizine HCl (Meclizine 12.5 Mg Tablet) 12.5 mg PO TID PRN PRN Reason: DIZZINESS Metformin HCl (Metformin Hcl 1,000 Mg Tablet) [facility] Metoprolol Succinate (Metoprolol(Xl)Succ 100 Mg Tablet) 100 mg PO DAILY [facility] Last Admin: 09/12/20 08:05 Dose: 100 mg Documented by: Morphine Sulfate (Morphine 2 Mg/Ml Syringe) 2 mg IV Q3H PRN PRN PRN Reason: Pain Score 6-10 Last Admin: 09/11/20 11:19 Dose: 2 mg Documented by: Multivitamins (Multivitamins,Therapeutic Tablet) 1 tablet PO DAILY@0800 [facility] Last Admin: 09/12/20 08:03 Dose: 1 tablet Documented by: Non-Formulary Medication (Apomorphine Hcl [Apokyn]) 0.3 ml SC TID PRN PRN Reason: parkinson's symptoms Non-Formulary Medication (Trimethobenzamide Hcl [Tigan]) 300 mg PO TIDPC [facility] Last Admin: 09/12/20 08:06 Dose: 300 mg Documented by: Nutritional Formula (Lactose Free) (Glucerna Shake 120 Ml Liquid) 120 ml PO 4X/DAY [facility] Last Admin: 09/12/20 08:02 Dose: 120 ml Documented by: Ondansetron HCl (Ondansetron 4 Mg/2 Ml Vial) 4 mg IV Q8H PRN PRN PRN Reason: NAUSEA/VOMITING Oxycodone HCl (Oxycodone 5 Mg Tablet) 5 mg PO Q4H PRN PRN PRN Reason: Pain Score 4-5 Last Admin: 09/11/20 10:14 Dose: 5 mg Documented by: Rizatriptan Benzoate (Rizatriptan Benzoate 10 Mg Tablet) 10 mg PO DAILY PRN PRN PRN Reason: MIGRAINE SYMPTOMS Sodium Chloride (0.9% Saline Lock 10 Ml Syringe) 10 - 40 ml IV UD PRN PRN Reason: SALINE FLUSH Last Admin: 09/12/20 05:34 Dose: 10 ml Documented by: STROKE Vital Signs/Narrative: Vital Signs Temp Pulse Resp BP BP Pulse Ox 09/12/20 08:05 66 09/12/20 07:54 98.4 F 66 18 185/85 H 99 09/12/20 07:44 70 09/12/20 04:31 71 18 166/75 H 97 09/12/20 04:14 73 181/91 H Medical Necessity - Tobacco Use Smoking Status: Never smoker Tobacco Use: Non-smoker Assessment/Plan 1. Acute on chronic intractable back pain, CT of the abdomen and pelvis was unremarkable. Lumbar spine MRI showed moderate or severe multilevel degenerative changes Pain management consulted, recommended epidural injection tomorrow Lovenox on hold 2. Hypertension, blood pressures have been uncontrolled, continue on hydrochlorothiazide, losartan, metoprolol Add hydralazine 25 mg p.o. twice daily 3. Type II DM, sugars are uncontrolled likely secondary to steroids, on Metformin Will check HbA1c, continue on high-dose insulin sliding scale, continue Metformin 4. Parkinson's disease, continue on Sinemet 5. Hyperlipidemia, continue on statin 6. Abnormal breast calcification, right, seen on CT of the abdomen and pelvis Outpatient mammogram recommended 7. DVT prophylaxis -Off Lovenox for epidural procedure tomorrow Inpatient E&M: 53555 Subs Hosp L2
[2020-09-12] MEDS: Losartan Potassium 100 MG Tablet PO (08:20)
[2020-09-12] MEDS: hydrALAZINE 25 MG Tablet PO ×2 (08:23→21:40)
[2020-09-12 08:26] LABS: Absolute Neutrophil Count 4.6 X10^3/uL (2.0-7.7); Basophil# 0.01 X10^3/uL; Basophil% 0.2 % (0-1); Hematocrit 39.4 % (37-47); Hemoglobin 12.4 g/dL (12.0-15.0); Lymphocyte % 14.4 % (19-41); Mean Corp Hgb Conc 31.5 g/dL (32-36); Mean Corpuscular Hgb 25.9 pg (27.0-32.0); Mean Corpuscular Volume 82.3 fL (81-99); Mean Platelet Vol. 8.9 fl (6.2-12.0); Monocyte# 0.14 X10^3/uL; Monocyte% 2.5 % (0-10); NRBC Flagged by Analyzer 0 % (0-5); Neutrophil # 4.57 X10^3/uL (2.7-7.7); Platelet Count 173 K/mm3 (150-450); RBC Distribution Width CV 15.7 % (11.6-14.6); RBC Distribution Width SD 46.8 fl (35.1-43.9); Red Blood Count 4.79 M/mm3 (4.2-5.4); White Blood Count 5.6 K/mm3 (4.4-11.0)
[2020-09-12 08:41] LABS: ALB/GLOB Ratio 0.9 RATIO (0.9-2.4); AST(SGOT) 36 U/L (15-37); Alanine Aminotransfer ALT/SGPT 36 U/L (13-56); Albumin, Serum 3.4 g/dL (3.2-5.0); Alkaline Phosphatase 75 U/L (45-117); Anion Gap 7 (5-15); BUN 17 mg/dL (7-18); BUN/Creat Ratio 24.8 RATIO (10-20); Calcium,Total 8.9 mg/dL (8.5-10.1); Chloride 109 mmol/L (98-107); Creatinine, Serum 0.69 mg/dL (0.55-1.02); EST Glomerular Filtration Rate 87 mL/min (>60); Est Glom Filt Rate - Afr Amer 105 mL/min (>60); Globulin 3.9 g/dL (2.2-4.2); Glucose 183 mg/dL (74-106); Potassium 3.6 mmol/L (3.5-5.1); Protein, Total 7.3 g/dL (6.4-8.2); Sodium Level 138 mmol/L (136-145)
[2020-09-12 10:55] LABS: Bedside Glucose 306 mg/dL (70-110)
--- NOTE | 2020-09-12 11:45 | NURSING ---
CM Note: RN CM Face to Face with patient for initial transition planning/care coordination assessment. RN CM introduced self and role at [facility]. Patient sitting in chair, alert and oriented. Patient willing to participate in assessment and is able to answer all questions appropriately. Care providers, pharmacy, and demographics verified. Patient wishes to discharge home, denies need for home health at this time. Patient states she has no further needs or concerns at this time. CM to follow for discharge planning needs that may arise. PCP: [facility]: Reports she sees a Parkinson's doctor but is unable to recall the name [facility] Insurance: [employer] Prescription Benefit: yes Living Will/HPOA: no LNOK: daughter Living Arrangements: Patient lives with her daughter and son in law in a [place] home. Patient has 13 steps with rails to get to main floor of home. Patient states she was independent with ADL's at home. Transportation: daughter DME/HHC: Patient states she has a shower chair, raised toilet seat, walker and rollator at home. No further anticipated DME needs at md. Patients states she has previously done outpatient therapy and will resume at discharge, daughter will schedule appointment. Disposition Plan: Patient to discharge home with outpatient therapy, family support, and follow-up plans in place.
--- NOTE | 2020-09-12 11:59 | CASEMGMT ---
DOMINIQUE ALMAGUER attempted to complete PROCTOR form with patient. DOMINIQUE ALMAGUER explained PROCTOR form to patient. Patient prefers that CM review form with daughter Britt because her daughter handles her affairs for her. DOMINIQUE ALMAGUER attempted to call daughter Britt to review PROCTOR form via telephone. No answer, voice message left with return contact information. CM will attempt again at later time.
--- NOTE | 2020-09-12 12:10 | CASEMGMT ---
DOMINIQUE ALMAGUER received call back from daughter Britt. DOMINIQUE ALMAGUER explained PROCTOR form to daughter Britt over the phone. Britt voiced understanding of PROCTOR form and telephone consent given. DOMINIQUE ALMAGUER filed PROCTOR form and chart and patient provided with copy of PROCTOR form.
[2020-09-12 12:32] LABS: Hemoglobin A1c 6.8 % (3.8-5.6)
[2020-09-12 16:06] LABS: Bedside Glucose 215 mg/dL (70-110)
[2020-09-12] MEDS: metFORMIN HCl 1,000 MG Tablet 1000 MG PO (17:20)
[2020-09-12] MEDS: hydroCHLOROthiazide 12.5mg 12.5 MG PO (18:28)
[2020-09-12] MEDS: clonazePAM 0.5 MG Tablet 0.125 MG PO (21:39)
[2020-09-12] MEDS: Atorvastatin Calcium 20 MG Tablet PO (21:40)
[2020-09-12 21:45] LABS: Bedside Glucose 207 mg/dL (70-110)
[2020-09-13] VITALS (8 sets, daily range): BP systolic 126–164; BP diastolic 57–92; PULSE 73–86; RESP 16–18; TEMP 36.4–36.7; O2SAT 96–99
[2020-09-13] MEDS: hydrALAZINE 20 MG/ML Vial 5 MG IV (00:46)
[2020-09-13] MEDS: 0.9% Saline Lock 10 ML Syringe IV (00:47)
[2020-09-13] MEDS: Acetaminophen 325 MG Tablet 650 MG PO (02:32)
[2020-09-13] MEDS: oxyCODONE 5 MG Tablet PO (05:22)
[2020-09-13 06:36] LABS: Bedside Glucose 128 mg/dL (70-110)
[2020-09-13 06:50] LABS: Absolute Lymphocyte Count 1.99 X10^3/uL (0.83-4.51); Absolute Neutrophil Count 4.8 X10^3/uL (2.0-7.7); Basophil# 0.02 X10^3/uL; Basophil% 0.3 % (0-1); Eosinophil# 0.01 X10^3/uL; Eosinophils% 0.1 % (0-5); Hematocrit 38.1 % (37-47); Hemoglobin 12.1 g/dL (12.0-15.0); Lymphocyte # 1.99 X10^3/ul (4.0); Lymphocyte % 25.6 % (19-41); Mean Corp Hgb Conc 31.8 g/dL (32-36); Mean Corpuscular Volume 81.8 fL (81-99); Monocyte# 0.88 X10^3/uL; Monocyte% 11.3 % (0-10); NRBC Flagged by Analyzer 0 % (0-5); Neutrophil # 4.81 X10^3/uL (2.7-7.7); Neutrophil % 61.9 % (47-70); Platelet Count 213 K/mm3 (150-450); RBC Distribution Width CV 15.8 % (11.6-14.6); Red Blood Count 4.66 M/mm3 (4.2-5.4); White Blood Count 7.8 K/mm3 (4.4-11.0)
[2020-09-13 07:17] LABS: ALB/GLOB Ratio 0.9 RATIO (0.9-2.4); AST(SGOT) 33 U/L (15-37); Alanine Aminotransfer ALT/SGPT 43 U/L (13-56); Albumin, Serum 3.3 g/dL (3.2-5.0); Alkaline Phosphatase 67 U/L (45-117); Anion Gap 8 (5-15); BUN 27 mg/dL (7-18); BUN/Creat Ratio 34.4 RATIO (10-20); Calcium,Total 9.2 mg/dL (8.5-10.1); Chloride 105 mmol/L (98-107); Creatinine, Serum 0.78 mg/dL (0.55-1.02); EST Glomerular Filtration Rate 75 mL/min (>60); Est Glom Filt Rate - Afr Amer 90 mL/min (>60); Globulin 3.7 g/dL (2.2-4.2); Glucose 131 mg/dL (74-106); Potassium 3.8 mmol/L (3.5-5.1); Sodium Level 136 mmol/L (136-145)
--- NOTE | 2020-09-13 09:35 | PCM.DC ---
- Discharge Diagnoses Reason(s) for Visit for Discharge Instructions: Acute on chronic back pain You will use the following diet at home:: Calorie/Carbohydrate Controlled (specify 1200, 1400, etc) - 1800 calories, Cardiac Your food should be the consistency of: Regular Your liquids should be the consistency of: Regular/Thin Discharge Activity: Return to Normal Activity Additional Instructions: Continue on your medication. Take note of changes to the medication. Measure your blood pressure every day. Follow-up with your primary care doctor within 1 to 2 weeks for blood pressure medication changes. Follow-up with Dr. Darby as soon as possible for evaluation of your back pain. Allergies/Adverse Reactions: Allergies amlodipine [From Norvasc] Allergy (Severe, Verified 09/10/20 22:56) Swelling celecoxib [From Celebrex] Allergy (Severe, Verified 09/10/20 22:56) Rash Medications to take at Discharge meclizine 12.5 mg tablet 12.5 mg PO TID PRN tab 08/31/18 sumatriptan succinate 50 mg tablet 50 mg PO ONCE PRN tab 08/31/18 clonazepam 0.125 mg disintegrating tablet 0.125 mg PO QHS tab 01/25/20 hydrochlorothiazide 12.5 mg capsule 12.5 mg PO QAM PRN cap 04/25/20 multivitamin 1 cap PO DAILY 04/25/20 apomorphine 10 mg/mL subcutaneous cartridge 0.3 ml SC DAILY ml 08/08/20 metoprolol succinate 100 mg tablet,extended release 24 hr 100 mg PO QDAY #90 tab 08/08/20 olmesartan 40 mg tablet 40 mg PO DAILY #90 tab 08/08/20 Carbidopa/Levodopa [Carbidopa-Levo ER 25-100 Tab] 1 ea PO TID 09/10/20 Ezetimibe/Simvastatin [Ezetimibe-Simvastatin 10-40 mg] 1 tab PO DAILY 09/10/20 Trimethobenzamide HCl [Tigan] 300 mg PO TID 09/10/20 Bedside commode See Rx Instructions .ROUTE .MEDSUPPLY #1 ea 09/12/20 lift chair See Rx Instructions .ROUTE .MEDSUPPLY #1 ea 09/12/20 shower chair See Rx Instructions .ROUTE .MEDSUPPLY #1 ea 09/12/20 Acetaminophen [Tylenol Tablet] 650 mg PO Q6H PRN PRN tab 09/13/20 Bisacodyl [Gentle Laxative] 5 mg PO DAILY PRN 30 Days #30 tab 09/13/20 Dexamethasone [Decadron] 4 mg PO DAILY@0800 5 Days #5 tablet 09/13/20 Glucerna Shake 120 ml PO 4X/DAY 30 Days #120 liquid 09/13/20 Oxycodone [Oxyir] 5 mg PO Q4H PRN PRN 5 Days #20 tablet 09/13/20 Sennosides/Docusate Sodium [Senna-Docusate Sodium Tablet] 1 ea PO DAILY PRN 30 Days #30 tab 09/13/20 hydrALAZINE [Apresoline] 50 mg PO BID 30 Days #60 tab 09/13/20 metFORMIN HCl [Glucophage] 1,000 mg PO BIDCM 30 Days #60 tab 09/13/20 The following prescriptions were given: hydrALAZINE [Apresoline] 50 mg PO BID 30 Days #60 tab Dexamethasone [Decadron] 4 mg PO DAILY@0800 5 Days #5 tablet Bisacodyl [Gentle Laxative] 5 mg PO DAILY PRN 30 Days #30 tab PRN Reason: Constipation Transmission Status: Pending to [id number] Glucerna Shake 120 ml PO 4X/DAY 30 Days #120 liquid metFORMIN HCl [Glucophage] 1,000 mg PO BIDCM 30 Days #60 tab Oxycodone [Oxyir] 5 mg PO Q4H PRN PRN 5 Days #20 tablet PRN Reason: Pain Score 6-10 Transmission Status: Sent to [id number] Sennosides/Docusate Sodium [Senna-Docusate Sodium Tablet] 1 ea PO DAILY PRN 30 Days #30 tab PRN Reason: Constipation Transmission Status: Pending to [facility] Primary Care Physician: Otis Lagos DO [Primary Care Provider] - Please follow up with your Primary Care Physician in: within 1-2 weeks Test Results: Test results from this visit will be discussed in further detail at your follow-up appointment, if applicable. Please Follow Up With: Branden Darby MD When: as scheduled Proposed Discharge Date: 09/13/20
--- NOTE | 2020-09-13 09:37 | PCM.DC.SUM ---
Discharge Date and Diagnosis Date of Admission: 09/11/20 Date of Discharge: 09/13/20 - Primary Discharge Diagnosis Acute Problems: Acute on chronic intractable back pain Uncontrolled hypertension Hyperglycemia, uncontrolled type II DM - Secondary Discharge Diagnosis Chronic Problems: Chronic Problems (Last Reviewed 08/08/20 @ 14:[address] Otis Lagos, DO) Parkinson disease (Chronic) Neuropathy (Chronic) Hyperlipidemia (Chronic) Hypertension (Chronic) Heart disease (Chronic) Hearing deficit (Chronic) Headache (Chronic) H/O emotional problems (Chronic) Diabetes (Chronic) Cataract (Chronic) Breast CA (Chronic) Arthralgia (Chronic) Hospital Course and Treatment Imaging Results: Clinical Impression(s) from Imaging Studies Abdomen/Pelvis CT 09/10/20 23:08 IMPRESSION: 1. No acute abdominopelvic abnormality. 2. Nonobstructing bilateral renal calculi. 3. Nonspecific density with calcifications in the right breast. Follow-up dedicated breast imaging recommended. 4. Additional findings above. Individualized dose optimization techniques were used for this CT. at 0012 Reported and signed by: Shandra Hinds MD Electronically Signed: Shandra Hinds MD at 0:12 EST Tel , Service support , Lumbar Spine MRI 09/11/20 05:55 IMPRESSION: Moderate/severe multilevel degenerative changes. Electronically Signed: Alyssa Osei MD at 15:50 EST Tel , Service support , None Operations: None Procedures: None Summary of Care Provided: The patient is a 80 year old F with past medical history of Parkinson's disease, hypertension, hyperlipidemia who presented with acute back pain that started 5 days prior to admission. Patient has chronic back pain/sciatica with radiation down both legs. She denied any bowel or bowel incontinence. Her pain was uncontrolled. In the emergency department, her work-up was unremarkable. CT of the abdomen and pelvis showed no abdominal/pelvic pathology. Her CT scan of the abdomen showed calcification in the breast. Follow-up was recommended from her primary care doctor follow-up mammogram. Lumbar spine MRI showed moderate to severe multilevel degenerative changes. Patient was admitted for intractable back pain. She was continued on pain medications as well as dexamethasone IV. She continued to do well. Pain management was consulted on patient and offered to do an epidural for pain control. Patient however insisted that her pain was controlled at the time of being seen. Subsequently during the night, her pain became uncontrolled. She was discharged on pain medication and short course of dexamethasone. She was recommended to follow-up with pain management in the outpatient. Discharge plan was communicated to her daughter. Subjective: On the day of discharge, patient was seen and examined. Denied any new complaints. Objective: Physical exam: General: Alert, Oriented x3, Cooperative, No apparent distress HEENT: Atraumatic, PERRLA, EOMI, Normocephalic Oral: Moist Mucosa Neck: Supple, No JVD, Negative Carotid Bruits Lungs: Clear to auscultation, Normal air movement, No rhonchi, No wheeze, No rales Cardiovascular: Regular rate, Regular Rhythm, Normal S1, Normal S2, No murmurs Abdomen: Bowel Sounds Present, Soft, Non Tender, Non-Distended, No Hepato-splenomegaly Extremities: No edema, Capillary Refill Less than 3 Seconds Skin: No rashes, No breakdown Musculoskeletal: No Tenderness to Palpation of Joints or Extremities Lymphatic: No Cervical, Supraclavicular, or Inguinal Adenopathy Neurological: Cranial nerves II-XII grossly intact, Neuro grossly intact, Motor Exam 5/5 strength throughout Psych/Mental Status: Normal Affect, Appropriate, Alert and oriented to time, place, person, mood and affect - Physical Exam Vitals/I&O's: Vital Signs Temp Pulse Resp BP Pulse Ox 98 F 73 16 160/83 H 97 09/13/20 02:28 09/13/20 02:28 09/13/20 02:28 09/13/20 02:28 09/13/20 02:28 Oxygen Delivery Method Room Air Weight: 71.3 kg Body Mass Index (BMI) 28.7 Intake and Output for Last 24 Hours 09/11/20 09/12/20 09/13/20 23:59 23:59 23:59 Intake Total 4407.5 / 4407.5 2357.5 / 2357.5 150 / 150 Output Total 2475 / 2475 1500 / 1500 200 / 200 Balance 1932.5 / 1932.5 857.5 / 857.5 -50 / -50 Laboratory Results 09/12/20 08:20: Hemoglobin A1c 6.8 H 09/12/20 10:32: POC Glucose 306 H 09/12/20 15:51: POC Glucose 215 H 09/12/20 21:26: POC Glucose 207 H 09/13/20 06:33: POC Glucose 128 H 09/13/20 06:38: WBC 7.8, RBC 4.66, Hgb 12.1, Hct 38.1, MCV 81.8, MCH 26.0 L, MCHC 31.8 L, RDW Std Deviation 47.0 H, RDW Coeff of Dwayne 15.8 H, Plt Count 213, MPV 9.0, Immature Gran % (Auto) 0.800, Neut % (Auto) 61.9, Lymph % (Auto) 25.6, [place] % (Auto) 11.3 H, Eos % (Auto) 0.1, Baso % (Auto) 0.3, Absolute Neuts (auto) 4.8, Absolute Lymphs (auto) 1.99, Nucleated RBC % 0 09/13/20 06:38: Sodium 136, Potassium 3.8, Chloride 105, Carbon Dioxide 23.0, Anion Gap 8, BUN 27 H, Creatinine 0.78, Estim Creat Clear Calc 34.30, Est GFR (MDRD) Af Amer 90, Est GFR (MDRD) Non-Af 75, BUN/Creatinine Ratio 34.4 H, Glucose 131 H, Calcium 9.2, Total Bilirubin 0.30, AST 33, ALT 43, Alkaline Phosphatase 67, Total Protein 7.0, Albumin 3.3, Globulin 3.7, Albumin/Globulin Ratio 0.9 Current Medications Acetaminophen (Acetaminophen 325 Mg Tablet) 650 mg PO Q6H PRN PRN PRN Reason: Pain Score 1-10/Temp > 100.7 F Last Admin: 09/13/20 02:32 Dose: 650 mg Documented by: Atorvastatin Calcium (Atorvastatin Calcium 20 Mg Tablet) 20 mg PO QHS [facility] Last Admin: 09/12/20 21:40 Dose: 20 mg Documented by: Bisacodyl (Bisacodyl 5 Mg Tablet) 5 mg PO DAILY PRN PRN Reason: Constipation Carbidopa/Levodopa (Carbidopa/Levodopa 25/100 Tablet) 1 tablet PO TIDPC [facility] Last Admin: 09/12/20 17:20 Dose: 1 tablet Documented by: Clonazepam (Clonazepam 0.5 Mg Tablet) 0.125 mg PO QHS [facility] Last Admin: 09/12/20 21:39 Dose: 0.125 mg Documented by: Ezetimibe (Ezetimibe 10 Mg Tablet) 10 mg PO DAILY [facility] Last Admin: 09/12/20 08:07 Dose: 10 mg Documented by: Hydralazine HCl (Hydralazine 20 Mg/Ml Vial) 5 mg IV Q6H PRN PRN PRN Reason: SBP>160 OR DBP > 120 Last Admin: 09/13/20 00:46 Dose: 5 mg Documented by: Hydralazine HCl (Hydralazine 50 Mg Tablet) 50 mg PO BID [facility] Hydrochlorothiazide (Hydrochlorothiazide 12.5mg) 12.5 mg PO DAILY PRN PRN PRN Reason: bp Last Admin: 09/12/20 18:28 Dose: 12.5 mg Documented by: Sodium Chloride () 250 mls @ 15 mls/hr IV .[id number] PRN PRN Reason: Saline Flush Sodium Chloride () 250 mls @ 15 mls/hr IV .[id number] PRN PRN Reason: Additional IVPB Infusion Insulin Human Lispro (Insulin Lispro 100 Unit/Ml Insuln.Pen) 0 unit SC [facility]; Protocol Last Admin: 09/13/20 06:36 Dose: Not Given Documented by: Losartan Potassium (Losartan Potassium 100 Mg Tablet) 100 mg PO DAILY [facility] Last Admin: 09/12/20 08:20 Dose: 100 mg Documented by: Meclizine HCl (Meclizine 12.5 Mg Tablet) 12.5 mg PO TID PRN PRN Reason: DIZZINESS Metformin HCl (Metformin Hcl 1,000 Mg Tablet) [facility] Last Admin: 09/12/20 17:20 Dose: 1,000 mg Documented by: Metoprolol Succinate (Metoprolol(Xl)Succ 100 Mg Tablet) 100 mg PO DAILY [facility] Last Admin: 09/12/20 08:05 Dose: 100 mg Documented by: Multivitamins (Multivitamins,Therapeutic Tablet) 1 tablet PO DAILY@0800 [facility] Last Admin: 09/12/20 08:03 Dose: 1 tablet Documented by: Non-Formulary Medication (Apomorphine Hcl [Apokyn]) 0.3 ml SC TID PRN PRN Reason: parkinson's symptoms Last Admin: 09/12/20 15:03 Dose: 0.3 ml Documented by: Non-Formulary Medication (Trimethobenzamide Hcl [Tigan]) 300 mg PO TIDPC [facility] Last Admin: 09/12/20 17:27 Dose: 300 mg Documented by: Nutritional Formula (Lactose Free) (Glucerna Shake 120 Ml Liquid) 120 ml PO 4X/DAY [facility] Last Admin: 09/12/20 21:30 Dose: 120 ml Documented by: Ondansetron HCl (Ondansetron 4 Mg/2 Ml Vial) 4 mg IV Q8H PRN PRN PRN Reason: NAUSEA/VOMITING Oxycodone HCl (Oxycodone 5 Mg Tablet) 5 mg PO Q4H PRN PRN PRN Reason: Pain Score 4-5 Last Admin: 09/13/20 05:22 Dose: 5 mg Documented by: Rizatriptan Benzoate (Rizatriptan Benzoate 10 Mg Tablet) 10 mg PO DAILY PRN PRN PRN Reason: MIGRAINE SYMPTOMS Senna/Docusate Sodium (Senna/Docusate Sodium 1 Tablet) 2 tablet PO DAILY PRN PRN PRN Reason: CONSTIPATION Sodium Chloride (0.9% Saline Lock 10 Ml Syringe) 10 - 40 ml IV UD PRN PRN Reason: SALINE FLUSH Last Admin: 09/13/20 00:47 Dose: 10 ml Documented by: Discharge Diet: Low fat/ Low Cholesterol, 2000 mg Sodium Diet Discharge Activity: Return to Normal Activity Home Medications: Medications to take at Discharge meclizine 12.5 mg tablet 12.5 mg PO TID PRN tab 08/31/18 sumatriptan succinate 50 mg tablet 50 mg PO ONCE PRN tab 08/31/18 clonazepam 0.125 mg disintegrating tablet 0.125 mg PO QHS tab 01/25/20 hydrochlorothiazide 12.5 mg capsule 12.5 mg PO QAM PRN cap 04/25/20 multivitamin 1 cap PO DAILY 04/25/20 apomorphine 10 mg/mL subcutaneous cartridge 0.3 ml SC DAILY ml 08/08/20 metoprolol succinate 100 mg tablet,extended release 24 hr 100 mg PO QDAY #90 tab 08/08/20 olmesartan 40 mg tablet 40 mg PO DAILY #90 tab 08/08/20 Carbidopa/Levodopa [Carbidopa-Levo ER 25-100 Tab] 1 ea PO TID 09/10/20 Ezetimibe/Simvastatin [Ezetimibe-Simvastatin 10-40 mg] 1 tab PO DAILY 09/10/20 Trimethobenzamide HCl [Tigan] 300 mg PO TID 09/10/20 Bedside commode See Rx Instructions .ROUTE .MEDSUPPLY #1 ea 09/12/20 lift chair See Rx Instructions .ROUTE .MEDSUPPLY #1 ea 09/12/20 shower chair See Rx Instructions .ROUTE .MEDSUPPLY #1 ea 09/12/20 Acetaminophen [Tylenol Tablet] 650 mg PO Q6H PRN PRN tab 09/13/20 Bisacodyl [Gentle Laxative] 5 mg PO DAILY PRN 30 Days #30 tab 09/13/20 Dexamethasone [Decadron] 4 mg PO DAILY@0800 5 Days #5 tab 09/13/20 Glucerna Shake 120 ml PO 4X/DAY 30 Days #120 liquid 09/13/20 Oxycodone [Oxyir] 5 mg PO Q4H PRN PRN 5 Days #20 tab 09/13/20 Sennosides/Docusate Sodium [Senna-Docusate Sodium Tablet] 1 ea PO DAILY PRN 30 Days #30 tab 09/13/20 hydrALAZINE [Apresoline] 50 mg PO BID 30 Days #60 tab 09/13/20 levoFLOXacin tablet [Levaquin tablet] 250 mg PO DAILY 5 Days #5 tab 09/13/20 metFORMIN HCl [Glucophage] 1,000 mg PO BIDCM 30 Days #60 tab 09/13/20 Following Prescriptions Were Given to Patient: hydrALAZINE [Apresoline] 50 mg PO BID 30 Days #60 tab Dexamethasone [Decadron] 4 mg PO DAILY@0800 5 Days #5 tab Bisacodyl [Gentle Laxative] 5 mg PO DAILY PRN 30 Days #30 tab PRN Reason: Constipation Transmission Status: Received by [id number] Glucerna Shake 120 ml PO 4X/DAY 30 Days #120 liquid metFORMIN HCl [Glucophage] 1,000 mg PO BIDCM 30 Days #60 tab levoFLOXacin tablet [Levaquin tablet] 250 mg PO DAILY 5 Days #5 tab Transmission Status: Received by [facility] Oxycodone [Oxyir] 5 mg PO Q4H PRN PRN 5 Days #20 tab PRN Reason: Pain Score 6-10 Transmission Status: Received by [facility] Sennosides/Docusate Sodium [Senna-Docusate Sodium Tablet] 1 ea PO DAILY PRN 30 Days #30 tab PRN Reason: Constipation Transmission Status: Received by [facility] Primary Care Physician: Otis Lagos DO [Primary Care Provider] - Please follow up with your Primary Care Physician in: within 1-2 weeks Please Follow Up With: Branedn Darby MD When: as scheduled Disposition: Home Minutes spent on discharge:: 40 Patient Condition:: Stable Medical Necessity - Tobacco Use Smoking Status: Never smoker Tobacco Use: Non-smoker Meaningful Use Info Meaningful Use Diagnoses (Choose all that apply): None applicable OBSV E&M: 61367 Observation care discharge
[2020-09-13] MEDS: Carbidopa/Levodopa 25/100 Tablet PO (10:14)
[2020-09-13] MEDS: metFORMIN HCl 1,000 MG Tablet 1000 MG PO (10:14)
[2020-09-13] MEDS: Ezetimibe 10 MG Tablet PO (10:15)
[2020-09-13] MEDS: Metoprolol(XL)Succ 100 MG Tablet PO (10:15)
[2020-09-13] MEDS: Losartan Potassium 100 MG Tablet PO (10:16)
[2020-09-13] MEDS: Multivitamins,Therapeutic Tablet 1 TABLET PO (10:16)
[2020-09-13] MEDS: Glucerna Shake 120 ML LIQUID PO (10:17)
[2020-09-13] MEDS: dexAMETHasone 4 MG Tablet PO (10:22)
[2020-09-13] MEDS: hydrALAZINE 50 MG Tablet PO (10:23)
--- NOTE | 2020-09-13 10:55 | NURSING ---
SSE administered per order. Pt tolerated well, pt unable to retain fluid. Small results at this time. Bed in low position, bed alarm on. Call light within reach. Pt knows to call if feeling the urge to defecate.
[2020-09-13 11:11] LABS: Bedside Glucose 168 mg/dL (70-110)
[2020-09-13] MEDS: Insulin Lispro 100 UNIT/ML INSULN.PEN SC (11:35)
--- NOTE | 2020-09-13 13:36 | CASEMGMT ---
DOMINIQUE ALMAGUER into to provide resources to patient and daughter Britt. DOMINIQUE ALMAGUER provided list of private duty aides and information regarding [employer] services. Daughter Britt voiced understanding. No further questions or concerns at this time.
== END 2020-09-13 13:38 | disposition home or self-care (01) ==
LOC: ED 09-11 00:45 → MS3 09-11 01:19
PROVIDERS: Internal Medicine; Admitting Provider Student in an Organized Health Care Education/Training Program; Emergency Provider Emergency Medicine; PCP Family Medicine; Visit Provider Internal Medicine
DX: M54.42 Lumbago with sciatica, left side (principal); M54.41 Lumbago with sciatica, right side; E11.65 Type 2 diabetes mellitus with hyperglycemia; I10 Essential (primary) hypertension; G89.29 Other chronic pain; G20 Parkinson's disease; E11.40 Type 2 diabetes mellitus with diabetic neuropathy, unspecified; E78.5 Hyperlipidemia, unspecified; I51.9 Heart disease, unspecified; Z79.899 Other long term (current) drug therapy; Z79.84 Long term (current) use of oral hypoglycemic drugs
CPT/HCPCS: 36415; 51702; 72158; 74176; 80048; 80053; 81001; 82962; 83036; 85025; 96361; 96372; 96374; 96375; 96376; 97110; 97162; 97166; 97530; 97535; 97802; 99218; 99285; A9575; J7030; A4216; G0378; J2405

== ENCOUNTER → 2020-11-08 10:56 | Outpatient (CLI) | payer MEDICARE, SELFPAY ==
[2020-11-08 11:00] LABS: Bacteria 0 SEEN /hpf (None Seen); Mucous, Urine 0 SEEN /hpf (<or=2+); Red Blood Cells-Urine 0 SEEN /hpf (0-5); White Blood Cells 0 SEEN /hpf (0-5)
[2020-11-08 12:44] LABS: Color, Urine Straw (Yellow); Glucose, Dipstick Normal (Normal); Ketone-Dipstick Negative (Negative); Leukocyte Esterase-Dipstick Negative /ul (Negative); Nitrite-Dipstick Negative (Negative); Occult Blood-Urine Negative /ul (Negative); Protein-Dipstick Negative (Negative); Urine Bilirubin Dipstick Negative (Negative); Urine Clarity Sl. Cloudy (Clear); Urine Urobilinogen Normal (Normal)
[2020-11-08 12:51] LABS: Squamous Epithelial Cells - UA 0-5 SEEN /hpf (5-10)
[2020-11-08 13:08] LABS: Cholesterol 150 mg/dL (200); High Density Lipoprotein 53 mg/dL; Triglycerides 308 mg/dL; Very Low Density Lipoprotein 62 mg/dL (5-40)
== END ==
PROVIDERS: PCP Family Medicine; Referring Provider Family Medicine; Visit Provider Family Medicine
DX: R35.0 Frequency of micturition (principal); E78.5 Hyperlipidemia, unspecified
CPT/HCPCS: 36415; 80061; 81001

== ENCOUNTER 2021-09-05 11:59 | Outpatient (CLI) | payer MEDICARE, SELFPAY ==
[2021-09-05 15:31] LABS: Absolute Lymphocyte Count 2.77 X10^3/uL (0.83-4.51); Absolute Neutrophil Count 4.7 X10^3/uL (2.0-7.7); Basophil# 0.03 X10^3/uL; Basophil% 0.4 % (0-1); Eosinophil# 0.14 X10^3/uL; Eosinophils% 1.6 % (0-5); Hematocrit 41.6 % (37-47); Lymphocyte # 2.77 X10^3/ul (0.83-4.51); Lymphocyte % 32.5 % (19-41); Mean Corp Hgb Conc 31.3 g/dL (32-36); Mean Corpuscular Hgb 27.8 pg (27.0-32.0); Mean Corpuscular Volume 88.9 fL (81-99); Monocyte# 0.83 X10^3/uL; Monocyte% 9.7 % (0-10); NRBC Flagged by Analyzer 0 % (0-5); Neutrophil # 4.71 X10^3/uL (2.7-7.7); Neutrophil % 55.2 % (47-70); Platelet Count 240 K/mm3 (150-450); RBC Distribution Width CV 14.7 % (11.6-14.6); RBC Distribution Width SD 46.6 fl (35.1-43.9); Red Blood Count 4.68 M/mm3 (4.2-5.4); White Blood Count 8.5 K/mm3 (4.4-11.0)
[2021-09-05 15:50] LABS: AST(SGOT) 22 U/L (15-37); Alanine Aminotransfer ALT/SGPT 15 U/L (13-56); Albumin, Serum 3.8 g/dL (3.2-5.0); Alkaline Phosphatase 76 U/L (45-117); Anion Gap 6 (5-15); BUN 27 mg/dL (7-18); BUN/Creat Ratio 31.6 RATIO (10-20); Calcium,Total 9.4 mg/dL (8.5-10.1); Chloride 105 mmol/L (98-107); Creatinine, Serum 0.85 mg/dL (0.55-1.02); EST Glomerular Filtration Rate 68 mL/min (>60); Est Glom Filt Rate - Afr Amer 82 mL/min (>60); Glucose 116 mg/dL (74-106); Potassium 4.5 mmol/L (3.5-5.1); Protein, Total 7.8 g/dL (6.4-8.2); Sodium Level 138 mmol/L (136-145)
== END 2021-09-05 23:59 | disposition home or self-care (01) ==
LOC: BIMLAB 12:00
PROVIDERS: PCP Family Medicine; Referring Provider Family Medicine; Visit Provider Family Medicine
DX: M25.50 Pain in unspecified joint (principal); E11.9 Type 2 diabetes mellitus without complications
CPT/HCPCS: 36415; 80053; 85025

== ENCOUNTER → 2021-12-04 | Outpatient (CLI) | payer MEDICARE, SELFPAY ==
[2021-12-04 15:35] LABS: Cholesterol 276 mg/dL (200); High Density Lipoprotein 44 mg/dL; Triglycerides 335 mg/dL; Very Low Density Lipoprotein 67 mg/dL (5-40)
== END | disposition home or self-care (01) ==
LOC: BIMLAB 11:44
PROVIDERS: PCP Family Medicine; Referring Provider Family Medicine; Visit Provider Family Medicine
DX: E11.9 Type 2 diabetes mellitus without complications (principal)
CPT/HCPCS: 36415; 80061

== ENCOUNTER → 2022-06-05 | Outpatient (CLI) | payer MEDICARE, SELFPAY ==
[2022-06-05 12:58] LABS: Hemoglobin A1c 6.7 % (3.8-5.6)
[2022-06-05 13:04] LABS: Cholesterol 158 mg/dL (200); High Density Lipoprotein 50 mg/dL; Triglycerides 228 mg/dL; Very Low Density Lipoprotein 46 mg/dL (5-40)
== END | disposition home or self-care (01) ==
LOC: BIMLAB 11:22
PROVIDERS: PCP Family Medicine; Referring Provider Family Medicine; Visit Provider Family Medicine
DX: E78.2 Mixed hyperlipidemia (principal); E11.9 Type 2 diabetes mellitus without complications
CPT/HCPCS: 36415; 80061; 83036

== ENCOUNTER → 2022-09-04 | Outpatient (CLI) | payer MEDICARE, SELFPAY ==
[2022-09-04 15:30] LABS: ALB/GLOB Ratio 1.1 RATIO (0.9-2.4); AST(SGOT) 29 U/L (15-37); Alanine Aminotransfer ALT/SGPT 16 U/L (13-56); Alkaline Phosphatase 78 U/L (45-117); Anion Gap 8 (5-15); BUN 24 mg/dL (7-18); BUN/Creat Ratio 28.8 RATIO (10-20); Calcium,Total 9.6 mg/dL (8.5-10.1); Chloride 106 mmol/L (98-107); Creatinine, Serum 0.83 mg/dL (0.55-1.02); EST Glomerular Filtration Rate 69 mL/min (>60); Est Glom Filt Rate - Afr Amer 84 mL/min (>60); Globulin 3.7 g/dL (2.2-4.2); Glucose 109 mg/dL (74-106); Potassium 4.7 mmol/L (3.5-5.1); Protein, Total 7.7 g/dL (6.4-8.2); Sodium Level 141 mmol/L (136-145)
== END | disposition home or self-care (01) ==
LOC: BIMLAB 11:40
PROVIDERS: PCP Family Medicine; Referring Provider Family Medicine; Visit Provider Family Medicine
DX: I10 Essential (primary) hypertension (principal)
CPT/HCPCS: 80053

== ENCOUNTER → 2022-12-05 | Outpatient (CLI) | payer MEDICARE, SELFPAY ==
[2022-12-05 17:23] LABS: Microalbumin,Random Urine 8.9 mg/L (NO RANGE EST.); Microalbumin:Creatinine Ratio 40.8 mg/g CRE (<30 mg/g CRE)
== END | disposition home or self-care (01) ==
LOC: LABSPEC 15:55
PROVIDERS: PCP Family Medicine; Referring Provider Family Medicine; Visit Provider Family Medicine
DX: E11.9 Type 2 diabetes mellitus without complications (principal)
CPT/HCPCS: 82043; 82570

== ENCOUNTER → 2023-05-29 | Outpatient (CLI) | payer MEDICARE, SELFPAY ==
[2023-05-29 12:24] LABS: Absolute Lymphocyte Count 2.02 X10^3/uL (0.83-4.51); Absolute Neutrophil Count 5.3 X10^3/uL (2.0-7.7); Basophil# 0.03 X10^3/uL; Basophil% 0.3 % (0-1); Eosinophil# 0.11 X10^3/uL; Eosinophils% 1.3 % (0-5); Hematocrit 40.5 % (37-47); Hemoglobin 12.7 g/dL (12.0-15.0); Lymphocyte # 2.02 X10^3/ul (0.83-4.51); Lymphocyte % 23.3 % (19-41); Mean Corp Hgb Conc 31.4 g/dL (32-36); Mean Corpuscular Hgb 28.6 pg (27.0-32.0); Mean Corpuscular Volume 91.2 fL (81-99); Mean Platelet Vol. 9.9 fl (6.2-12.0); Monocyte# 1.16 X10^3/uL; Monocyte% 13.4 % (0-10); NRBC Flagged by Analyzer 0 % (0-5); Neutrophil # 5.32 X10^3/uL (2.7-7.7); Neutrophil % 61.4 % (47-70); Platelet Count 195 K/mm3 (150-450); RBC Distribution Width CV 13.6 % (11.6-14.6); RBC Distribution Width SD 46.2 fl (35.1-43.9); Red Blood Count 4.44 M/mm3 (4.2-5.4); White Blood Count 8.7 K/mm3 (4.4-11.0)
[2023-05-29 12:55] LABS: ALB/GLOB Ratio 0.8 RATIO (0.9-2.4); AST(SGOT) 17 U/L (15-37); Alanine Aminotransfer ALT/SGPT 13 U/L (13-56); Albumin, Serum 3.3 g/dL (3.2-5.0); Alkaline Phosphatase 87 U/L (45-117); Anion Gap 6 (5-15); BUN 19 mg/dL (7-18); BUN/Creat Ratio 23.7 RATIO (10-20); Calcium,Total 9.1 mg/dL (8.5-10.1); Chloride 103 mmol/L (98-107); EST Glomerular Filtration Rate 72 mL/min (>60); Est Glom Filt Rate - Afr Amer 87 mL/min (>60); Globulin 4.2 g/dL (2.2-4.2); Glucose 126 mg/dL (74-106); Potassium 4.3 mmol/L (3.5-5.1); Protein, Total 7.5 g/dL (6.4-8.2); Sodium Level 136 mmol/L (136-145); Thyroid Stim Hormone (TSH) 0.76 uIU/mL (0.358-3.74)
== END | disposition home or self-care (01) ==
LOC: BIMLAB 11:20
PROVIDERS: PCP Family Medicine; Visit Provider Family Medicine
DX: M25.50 Pain in unspecified joint (principal); E78.2 Mixed hyperlipidemia; I10 Essential (primary) hypertension
CPT/HCPCS: 36415; 80053; 84443; 85025

== ENCOUNTER → 2023-12-11 | Outpatient (CLI) | payer MEDICARE, SELFPAY ==
--- NOTE | 2023-12-11 09:05 | RAD_ITS ---
STUDY: X-RAY - ESOPHAGUS (BARIUM SWALLOW) WITH FLUOROSCOPY REASON FOR EXAM: Female, 83 years old. DYSPHAGIA/PARK INS ONS TECHNIQUE: 20 view(s) of the esophagus were obtained following swallowing of barium. FLUOROSCOPY TIME (if supplied): (30 seconds) minutes/seconds. 5.93 mGy. COMPARISON: None. FINDINGS: There is no demonstrated esophageal foreign body. There is no demonstrated stricture or mucosal abnormality. Normal gastroesophageal junction, without a demonstrated hiatal hernia. The patient ingested a 12 mm tablet of barium without any difficulty. There is atherosclerotic calcification of the aortic arch with tortuosity of the descending aorta. Normal visualized pulmonary parenchyma. There are diffuse degenerative changes of the visualized thoracic spine. RAD/Esophagus Dual Contrast IMPRESSION: Normal plain film x-ray examination (barium swallow) of the esophagus. Electronically Signed: Missael Munoz MD at 9:48 EDT ,
== END | disposition home or self-care (01) ==
PROVIDERS: PCP Family Medicine; Referring Provider Clinical Nurse Specialist Acute Care; Visit Provider Clinical Nurse Specialist Acute Care
DX: G20.B1 Parkinson's disease with dyskinesia, without mention of fluctuations (principal)
CPT/HCPCS: 74221

== ENCOUNTER 2024-01-27 10:30 | Outpatient (RCR) | payer MEDICARE, SELFPAY ==
--- NOTE | 2023-12-12 11:41 | HP.SP.EVAL ---
Visit History Visit Info Date of Eval: 12/08/23 Visit: 1 Sales And Customer Relations Rep: DEONNA History Attending Doctor: SVEN Referring Doctor: SVEN Reason for Referral: [facility] Medical Diagnosis: Dyphonia R49.0 Date of Onset of Diagnosis: 2013 Previous speech therapy: No Other Relevant Medical History/Diagnoses/Surgery: Arthralgia, Breast CA, Cataract, CATARACT REMOVAL, Diabetes, H/O emotional problems, Headache, Hearing deficit, Heart disease, Hyperlipidemia Hypertension, Neuropathy, Parkinson disease, Sinus drainage, Radiation greater than 15 years ago with no swallowing deficits at that time. She lives with her daughter. They reported that carbidopa- levodopa creates reflux for her. Medications related to this diagnosis: multivitamin 1 cap PO DAILY 04/25/20 [History Confirmed 12/03/23] meclizine 12.5 mg tablet 12.5 mg PO TID PRN Dizziness #30 tabs 09/05/21 [Rx Confirmed 12/03/23] docusate sodium 100 mg capsule (Colace) 200 mg (2 x 100 mg) PO DAILY #100 caps 12/04/21 [Rx Confirmed 12/03/23] esomeprazole magnesium 40 mg capsule, delayed release 40 mg PO QDAY #90 caps 02/26/23 [Rx Confirmed 12/03/23] carbidopa ER 25 mg-levodopa 100 mg tablet,extended release 1 tab PO TID 05/29/23 [History Confirmed 12/03/23] rivastigmine tartrate 1.5 mg capsule 1.5 mg PO BID #90 caps 09/03/23 [Rx Confirmed 12/03/23] amantadine HCl 100 mg tablet 100 mg PO BID #180 tabs 12/03/23 [Rx Confirmed 12/03/23] metoprolol succinate 100 mg tablet,extended release 24 hr 100 mg PO QDAY #90 tabs 12/03/23 [Rx Confirmed 12/03/23] mirtazapine 15 mg tablet 15 mg PO QHS #90 tabs 12/03/23 [Rx Confirmed 12/03/23] olmesartan 40 mg tablet 40 mg PO DAILY #90 tabs 12/03/23 [Rx Confirmed 12/03/23] rosuvastatin 20 mg tablet 20 mg PO DAILY #90 tabs 12/03/23 [Rx Confirmed 12/03/23] Smoking Status: Never smoker Diagnosis Diagnosis: Dysphonia R49.0, Parkinson's Disease Pain Is pain an issue with your current prescribed condition?: No Personal Preferred language: Kazakh Patient Allergies Allergies Allergies: Allergies amlodipine (From Norvasc) Allergy (Severe, Verified 12/03/23 10:26) Swelling celecoxib (From Celebrex) Allergy (Severe, Verified 12/03/23 10:26) Rash Subjective Dysphagia Symptoms Reported Symptoms/Problems with: Difficulty Swallowing Pills Current Diet Solids Current Diet: Regular Other: Sometimes soft and bite sized Current Diet Liquids Current Liquids: Thin Comments Comments: -: Anne reported that she is a fast eater and sometimes coughs when she eats. She also stated that she coughs often throughout the day. Further testing is recommended for dysphagia assessment. Objective Oral Motor Oral Status Dentition: Missing Teeth Labial Impairment: WNL Closure: WNL Pucker: WNL Retraction: WNL Alternating Pucker/Retraction: WNL Involuntary Movement noted: No Lingual Impairment: WNL Protrusion: WNL Retraction: WNL Lateralization: WNL Involuntary Movement: No Jaw Impairment: WNL Respiratory Status Respiratory Status: Room Air Subjective Voice Informal Questioner Do you scream (anger, sporting event, work, noisy envirmonment): Less than average Do you raise your voice (e.g. parenting, calling from room to room, etc.): Less than average Do you talk for long periods of time without a break (teacher, armas): Less than average Are you a talker: Less than average Do you clear your throat: More than average Do you cough: More than average How often do you use the telephone: Less than average Do you do impersonations, character voices or unusual sound effects: None Intubation Was the Client intubated: No Other Product Usage Do you use products containing menthol (if yes, list): No Do you take Vitamin C Supplements (if yes, list amt (mg)/day: No Do you use recreational drugs (if yes, list type/amt/frequency): No Objective Voice Date of Diagnosis Previous Speech Therapy (If yes, describe): No Implantation Deep brain implantation (If yes, answer next question): No Objective data Objective Data: Objective data: Sound pressure level (SPL acoustic correlation of vocal loudness) was measured with a sound level meter at a distance of 40 cm from the patient's mouth. Average conversational loudness is 70-80 dB and sustained phonation duration is 15 to 20 seconds for a typical adult. Sustained Phonation Intensity (dB SPL): 65 Sustained Phonatin duration (seconds): 9 Vocal Intensity at Conversational Level (dB SPL): 55.8 Reference: Neuro-QoL instrument HDQLIFE - Speech Difficulties In the past 7 days. It was difficult for other people to understand me.: Often Is was difficult to speak clearly?: Sometimes In the past 7 days.. How often did you limit your social activites because you had difficulty speaking?: Sometimes In the past 7 days... I had trouble speaking.: A little bit I was frustrated by my speech difficulties.: A little bit How much DIFFICULTY do you have... ...saying what you want to say?: A little difficulty Score HDQLIFE Speech Difficulties Raw Score: 16 HDQLIFE Speech Difficulties T - Score: 56 Radiation Oncology Patient Plan Plan Plan: A vocal intensity based intervention approach applying LSVT principles to improve speech intelligibility will be used. Given the progressive nature of primary diagnosis, It is not anticipated for a full return to pre-morbid level of functioning, though will expect to achieve gains in speech intelligibility as well as maintain current level of functioning. To achieve this, the patient will require continued skilled speech-language intervention not only through the current intervention cycle but will likely benefit from repeated intervention cycles to maintain communication efficiency. Recommend FEES to assess swallow function with goals added at that time. Recommendations Treatment Warranted: Yes Treatment Warranted: Voice Progress Prognosis: Good Frequency Frequency: 2x /Week Duration: 2 Months Visits in this POC: 16 Goals that are Established Determination:: Goals will be added/modified as deemed necessary and appropriate. Therapy will be discontinued when results of re-evaluation indicate therapy is no longer needed or lack of progress has been documented. Goal #1-5 Goal #1: Patient will increase vocal loudness to reach a target sound pressure level of 75 dB MANAGER HEMATOLOGY with 1 cue during sustained phonation, which will help increase vocal respiratory support for functional communication. Goal #2: Patient will increase vocal loudness to reach a target sound pressure level of 65 dB MANAGER HEMATOLOGY with 1 cue during reading at the word and sentence level, which will help increase vocal respiratory support for functional communication. Goal #3: Patient will increase vocal loudness to reach a target sound pressure level of 65 dB MANAGER HEMATOLOGY with 1 cue during conversation for functional communication. Goal #4: Patient will sustain phonation for 12-15 seconds to increase breath support for functional communication. Goal #5: Instrumental swallow evaluation ( FEES/MBS) Education Patient has Indicated that the Following Identified Educational Needs: Cognitively Impaired Patient Instruction Patient Education: Diagnosis, Treatment Plan, Goals and Diet Level Person Taught: Patient and Family Teaching Method: Discussion Response to teaching: Verbalize understanding
--- NOTE | 2024-01-28 09:13 | HP.SPFEES ---
FEES Patient Information Date of Evaluation: 01/26/24 Time of Evaluation: 13:00 DIAGNOSIS:: dysphagia Referring Physician: Demetria Rivera Staff Providing this Care/Treatment:: DEONNA Yepez Billable Minutes: 120 Subjective: Subjective:: Anne is an 83 year old woman diagnosed with Parkinson's Disease. She was cooperative during the FEES and had no complaints. Current Diet: Drinks/Liquids:: Thin Foods:: Regular Medication Administration:: orally Respiratory Status: Observation:: 96 O2 Dentation/Oral Hygiene: Observations:: adequate dentition - natural teeth Vocal Quality: Observations:: Hoarse Cognition: Observations:: WFL Fiberoptic Endoscope: Size: 3.4 mm Nare:: Right Position During FEES: Position During FEES:: Upright Location: In Chair Anatomy: + Velopharyngeal Port Observations Movement: Yes and Symmetrical +Nasopharynx Observations Tissue Description: [place] and Moist +Oropharynx Observations: Tissue Description: [place] and Moist +Hypopharynx Observation: Tissue Description: [place] and Moist Secretions: Description:: Thick and Clear Location:: Hypopharynx Phonation: Vocal Folds:: WNL Penetration-Aspiration Scale Penetration-Aspiration Scale Swallowing: Initiation:: Vallecula and Piriform Sinus Swallowing Trials: Swallowing Trials Results Below: Thin Liquid: Trial 1: water Administered:: via a straw Aspiration: No - aspiration Residue: No PAS Score: PAS Score *1 Administered:: via a straw Aspiration: No - aspiration PAS Score: PAS Score *1 Puree Texture: Trial 1: Applesauce Administered:: via a teaspoon Aspiration: No - aspiration Residue: No Residue Location: Residue Location Vallecula PAS Score: PAS Score *1 Soft & Bite Texture: Trial 1: peaches Administered:: via a teaspoon Aspiration: No - aspiration Residue Lacation: Residue Location Vallecula PAS Score: PAS Score *1 Trial 2: Peaches with liquid Administered:: via a teaspoon Aspiration: No - aspiration Residue Lacation: Residue Location Vallecula PAS Score: PAS Score *1 Regular Texture: Trial 1: peanut butter sandwich Aspiration: No - aspiration Residue Location: Residue Location Vallecula PAS Score: PAS Score *1 Trial 2: Cereal bar Aspiration: No - aspiration Residue: Yes PAS Score: PAS Score *1 Strategies Comments:: Patient was able to clear all residue with double swallow. Small bites decreased residue. A liquid wash was recommended after 2-3 bites of food incase she doesn't recall to double swallow. Recommendations: Recommended Diet Grade & Liquid Drinks/Liquids:: Thin Foods:: Regular Medication Administration:: orally Supervision/Cues: Distant Recommended Compensatory Strategies: Small bites, double swallow, liquid wash after 2-3 bites of food. Recommend Repeat Fiberoptic Endoscopic Evaluation of Swallowing: Yes Comment: Due to the progressive nature of her disease she will most likely need further evaluation in the future. She and her daughter were educated on signs of dysphagia and steps to take for re-evaluation. Education: Education Completed: 1. Described result of evaluation., 2. Pt understands evaluation & agrees with goals and treatment plan., 4. Family/caregivers understand evaluation & agree w/ goals & tx plan., 5. Patient demonstrates recommended strategies., 7. Pt requires further education on strategies & risks. and 8. Family/caregivers require further education on strategies & risks. Goals that are Established Determination:: Goals will be added/modified as deemed necessary and appropriate. Therapy will be discontinued when results of re-evaluation indicate therapy is no longer needed or lack of progress has been documented.
--- NOTE | 2024-02-16 14:11 | HP.SP.DC_ITS ---
ST Discharge Summary Discharged: Discharge: Anne Martinez is discharged from speech therapy at [facility] as of 01/27/24 as she had met her goals. She was evaluated on 12/08/23 with therapy recommended twice per week then reduced to once per week as she progressed. Her goals focused on increased loudness at the sustained phonation level, reading level and in conversation along with breath support. She was able to use a loudness of 65-69 dB in conversation and her goal was 65dB. She met the goal of sustaining phonation for 12-15 seconds as she was able to do so for 15.75 seconds as an average. She completed a FEES procedure for dysphagia evaluation. She was recommended a regular diet with thin liquids with the following Recommended Compensatory Strategies: Small bites, double swallow, liquid wash after 2-3 bites of food. Her daughter was present for education on completing these recommendations. No further therapy recommended at this time. Due to the progressive nature of her disease therapy may be warranted at a later date. Please see daily notes and evaluations for complete details. Thank you for allowing me to participate in the care of this patient.
== END 2024-01-27 19:00 | disposition home or self-care (01) ==
LOC: SP 10:30
PROVIDERS: PCP Family Medicine; Referring Provider Clinical Nurse Specialist Acute Care; Visit Provider Clinical Nurse Specialist Acute Care
DX: G20.A1 Parkinson's disease without dyskinesia, without mention of fluctuations (principal); R13.10 Dysphagia, unspecified; R49.0 Dysphonia
CPT/HCPCS: 92507; 92526; 92610; 92612

== ENCOUNTER → 2024-03-16 | Outpatient (CLI) | payer MEDICARE, SELFPAY ==
[2024-03-16 11:41] LABS: Mucous, Urine 0 SEEN /hpf (<or=2+); Red Blood Cells-Urine 0 SEEN /hpf (0-5)
[2024-03-16 12:11] LABS: Color, Urine Yellow (Yellow); Glucose, Dipstick 100 mg/dl (Normal); Ketone-Dipstick 5 mg/dl (Negative); Leukocyte Esterase-Dipstick 100 /ul (Negative); Nitrite-Dipstick Positive (Negative); Occult Blood-Urine 10 /ul (Negative); Protein-Dipstick 30 mg/dl (Negative); Specific Gravity, Urine 1.025 (1.002-1.030); Urine Bilirubin Dipstick Negative (Negative); Urine Clarity Sl. Cloudy (Clear); Urine Urobilinogen Normal (Normal)
[2024-03-16 12:17] LABS: Bacteria 2+ /hpf (None Seen); Squamous Epithelial Cells - UA 0-5 SEEN /hpf (5-10); White Blood Cells 10-25 SEEN /hpf (0-5)
== END | disposition home or self-care (01) ==
LOC: BIMLAB 11:33
PROVIDERS: PCP Family Medicine; Visit Provider Family Medicine
DX: R32 Unspecified urinary incontinence (principal)
CPT/HCPCS: 81001

== ENCOUNTER 2024-09-30 11:00 | Outpatient (RCR) | payer MEDICARE, OTHER, SELFPAY ==
--- NOTE | 2024-05-24 11:29 | HP.PTEVAL_ITS ---
Patient's Visit Information Visit Information Visit Information: ANNE DANG is a 83 year old F referred to Physical Therapy by Dr. Otis Lagos DO with a diagnosis of PD. Date of Evaluation: 05/24/24 Physical Therapist: LUIS ALBERTO Shaffer Visit Plan Frequency: 2x /Week Duration: 3 Months Plan: At this point in time I do feel that PT will help Anne to improve her walking ability, transfers, dual tasking, strength and improve overall Quality of Life 2X/ week for 8-12 weeks for gait training, balance activities, functional transfers, dual tasking, endurance, strength, with HEP HEP: seated opp arm and leg with daughters help. Subjective Subjective: She is on Hospice and has a lady come in twice a week to bathe her and then a nurse once a week. She needs therapy so that she can walk better. She feels that her legs do not want to go. She has PD and newly Dx with dementia. She lives with her daughter. She is on one floor. She has help to bathe to wash her back and helps to get dressed. She has had falls in the past and none in the last 6 months. She does not use the rollator much at home. She does not use the rollator all the time when going out either. She has no exercise equipment at home. She can get in and out of the bed (she has an adjustable bed but does not always use it). Stairs: uses a hand rail or she monkey crawls up the steps and probably does 1 step at a time. She is able to get up out of the chair with using her arms. Objective Objective: Gait: walks with short choppy steps with rollator and flexed spine. When walking without the rollator her steps are even smaller and she reaches for the handrail. She does not walk with head turns and when asked to she stops to turn her head. On the way out of the eval I had the pt take bigger more fluid steps and she was able to turn her head but did veer with CGA and did slow down a little bit. Sit to stand: able to get up on first attempt with use of B UE's. She does have some retro center of gravity and likes to hold onto the chair until gets normal center of gravity. LE MMT: R hip flex 3+/5 and L hip flex 4-/5 R knee ext B 4/5 R knee flex B 4-/5 Pt is able to go from sitting to supine but lost of verbal and tactile cues to help her straighten up her body and shift herself over sideways and up on the mat table. She was able to go from supine to sit as well but did get a little dizzy on sitting up. FGA: 7 Seated opp arm and leg (pt struggled to start but once she was redirected with tactile and verbal cues she was able to do approx 8 in a row before reverted back to same side Balance/Special Test Scores Functional Gait Assessment Score: 7 % Disability: 76.6700 Lower Extremity Functional Score: 20 Goals Goal 1:: I HEP Goal Time Frame: 8-12 Weeks Goal 2:: Be able to walk without AD with CGA with bigger strides and no veering Goal Time Frame: 8-12 Weeks Goal 3:: Be able to walk entire dept with rollator, CGA, Big steps and head turns on command without veering or stopping Goal Time Frame: 8-12 Weeks Goal 4:: Increase balance (score was 7 on eval) Goal Time Frame: 8-12 Weeks Goal 5:: Be able to complete X 10 standing opp arm and leg without messing up or LOB Goal Time Frame: 8-12 Weeks Rehabilitation Potential Rehabilitation Potential: Good Anticipated Interventions Patient/Client Instruction: Educate patient on: Condition and Plan of Care For the Purpose of:: To improve muscle performance and motor function, To improve ability to perform ADL's, To increase tolerance to activity/condition/position, To improve performance and independence with ADL's, To decrease level of supervision to perform tasks, To improve ability of physical actions for home/community/work/leisure, To improve gait and locomotor functions, To improve endurance, To improve balance, To improve safety with gait and To assume or resume ADL's Therapeutic Exercise to Include: Strength training, Power training, Endurance training, Balance training, Coordination, Body mechanics, Postural training, Flexibilty training, Gait and locomotor training, Neuromotor development and Dynamic Lumbar Stabilization For the Purpose of:: To improve muscle performance and motor function, To improve ability to perform ADL's, To increase tolerance to activity/condition/position, To improve performance and independence with ADL's, To improve ability of physical actions for home/community/work/leisure, To improve gait and locomotor functions, To improve health of tissue, To improve endurance, To improve balance, To improve safety with gait and To assume or resume ADL's Functional Training to Include: Gait training For the Purpose of:: To improve gait and locomotor functions Text: Thank you for the opportunity to evaluate your patient. For Medicare and Medicare HMO plans, please review the plan of care and approve it. It will need to be FAXED BACK to us at [phone] for Medicare purposes. For Medicare only, by signing this I certify the plan of care. Please let me know if there are questions or concerns regarding this plan of car e. Physician Signature: Date:
--- NOTE | 2024-07-06 13:53 | HP.PTREVAL_ITS ---
Re-Evaluation Intro: Dr. Otis Lagos, DO, It has been my pleasure to treat SARAH DANG over the last 6 visits for PD. Please see the progress note below for an update on the physical therapy plan of care! Subjective Subjective: She is doing her floor bike pedaling in her chair at home. She feels PT is helping and it is making her think about how she does things more. She is still struggling with being able to move and move her legs. Objective Objective/Function: FGA: 9 Standing opp arm and leg: she was able to do CLOTH WEAVER with therapist opp leg X 10 but was too fearful balance chatman to add in the arms Seated opp arm and leg X 10 in a row but took a lot of thought and did it very slowly. Gait around dept with rollator and took 4 min and 1 second (no veering but did catch toe a few times along the way) Pt is now able to walk with a rollator and do horizontal and vertical head turns without veering Stairs: up going back and forth between recip and step two gait pattern with 2 hand rails and descending the steps with step two gait pattern. Plan Plan Plan: Would like to continue with PT as pt will continue to benefit from PT to continue to work on sit to stand transfers, stairs, balance, gait training, dual tasking with HEP Balance/Gait/Functional tests Balance/Special Test Scores Functional Gait Assessment Score: 9 % Disability: 70.0000 Lower Extremity Functional Score: 20 Goals Goals Goal 1:: I HEP Goal Time Frame: 8-12 Weeks Goal Progress: Progressing Goal 2:: Be able to walk without AD with CGA with bigger strides and no veering Goal Time Frame: 8-12 Weeks Goal 3:: Be able to walk entire dept with rollator, CGA, Big steps and head turns on command without veering or stopping Goal Time Frame: 8-12 Weeks Goal Progress: Progressing Goal 4:: Increase balance (score was 7 on eval) Goal Time Frame: 8-12 Weeks Goal 5:: Be able to complete X 10 standing opp arm and leg without messing up or LOB Goal Time Frame: 8-12 Weeks Anticipated Interventions Anticipated Interventions Patient/Client Instruction: Educate patient on: Condition and Plan of Care For the Purpose of:: To improve muscle performance and motor function, To improve ability to perform ADL's, To increase tolerance to activity/condition/position, To improve performance and independence with ADL's, To decrease level of supervision to perform tasks, To improve ability of physical actions for home/community/work/leisure, To improve gait and locomotor functions, To improve endurance, To improve balance, To improve safety with gait and To assume or resume ADL's Therapeutic Exercise to Include: Strength training, Power training, Endurance training, Balance training, Coordination, Body mechanics, Postural training, Flexibilty training, Gait and locomotor training, Neuromotor development and Dynamic Lumbar Stabilization For the Purpose of:: To improve muscle performance and motor function, To improve ability to perform ADL's, To increase tolerance to activity/condition/position, To improve performance and independence with ADL's, To improve ability of physical actions for home/community/work/leisure, To improve gait and locomotor functions, To improve health of tissue, To improve endurance, To improve balance, To improve safety with gait and To assume or resume ADL's Functional Training to Include: Gait training For the Purpose of:: To improve gait and locomotor functions Re-Evaluation Ending Re-evaluation ending: Please do not hesitate to contact me at [phone] by phone or if you have questions or concerns regarding this new plan of care! Sincerely, Sally Peacock MPT
--- NOTE | 2024-08-23 12:26 | HP.PTREVAL ---
Re-Evaluation Intro: Dr. Otis Lagos, DO, It has been my pleasure to treat SARAH DANG over the last 12 visits for PD. Please see the progress note below for an update on the physical therapy plan of care! Subjective Subjective: Pt reports that she feels that she is slow. Pt feels a little better. Objective Objective/Function: FGA: 10 Able to sit to stand X 5 (2 of the attempts were on second time) Pt is able to walk a complete lap around dept with rollator Standing opp arm and leg ...needs max cues to tell which am and leg and wanted hand held assist if not using her rollator Plan Plan Plan: Pt has 10 more visits prior to 09/08. Pt to continue PT to work on balance, dual tasking, sit to stand transfers, some strength with HEP Balance/Gait/Functional tests Balance/Special Test Scores Functional Gait Assessment Score: 10 % Disability: 66.6700 Lower Extremity Functional Score: 15 Goals Goals Goal 1:: I HEP Goal Time Frame: 8-12 Weeks Goal Progress: Progressing Goal 2:: Be able to walk without AD with CGA with bigger strides and no veering Goal Time Frame: 8-12 Weeks Goal 3:: Be able to walk entire dept with rollator, CGA, Big steps and head turns on command without veering or stopping Goal Time Frame: 8-12 Weeks Goal Progress: Goal Met Goal 4:: Increase balance (score was 7 on eval) Goal Time Frame: 8-12 Weeks Goal 5:: Be able to complete X 10 standing opp arm and leg without messing up or LOB Goal Time Frame: 8-12 Weeks Goal 6:: Be able to do 1 X 10 sit to stands with no arms to be able to get out of the chair consistently at home Goal Time Frame: 8-12 Weeks Anticipated Interventions Anticipated Interventions Patient/Client Instruction: Educate patient on: Condition and Plan of Care For the Purpose of:: To improve muscle performance and motor function, To improve ability to perform ADL's, To increase tolerance to activity/condition/position, To improve performance and independence with ADL's, To decrease level of supervision to perform tasks, To improve ability of physical actions for home/community/work/leisure, To improve gait and locomotor functions, To improve endurance, To improve balance, To improve safety with gait and To assume or resume ADL's Therapeutic Exercise to Include: Strength training, Power training, Endurance training, Balance training, Coordination, Body mechanics, Postural training, Flexibilty training, Gait and locomotor training, Neuromotor development and Dynamic Lumbar Stabilization For the Purpose of:: To improve muscle performance and motor function, To improve ability to perform ADL's, To increase tolerance to activity/condition/position, To improve performance and independence with ADL's, To improve ability of physical actions for home/community/work/leisure, To improve gait and locomotor functions, To improve health of tissue, To improve endurance, To improve balance, To improve safety with gait and To assume or resume ADL's Functional Training to Include: Gait training For the Purpose of:: To improve gait and locomotor functions Re-Evaluation Ending Re-evaluation ending: Please do not hesitate to contact me at [phone] by phone or if you have questions or concerns regarding this new plan of care! Sincerely, Sally Peacock MPT
--- NOTE | 2024-09-08 12:25 | HP.PTREVAL ---
Re-Evaluation Intro: Dr. Otis Lagos, DO, It has been my pleasure to treat SARAH DANG over the last 15 visits for PD. Please see the progress note below for an update on the physical therapy plan of care! Subjective Subjective: Pt reports that she does not feel too much better. She reports that she is so tired and all she wants to do is sleep. She states that she thinks that her meds are not working. Objective Objective/Function: Standing opp arm and leg ...needs max cues to tell which am and leg and needs UE support to complete the task. Sit to stand X 10 (2/10 were on second attempt) with no UE support. Gait: pt walks with short steps when not holding onto an AD or therapists arm FGA 10 Plan Plan Plan: 1X/ week for 3 weeks to learn indep HEP with pictures (start with chair based exercises and then can incorporate some standing exercises that she can do with her daughter present) Balance/Gait/Functional tests Balance/Special Test Scores Functional Gait Assessment Score: 10 % Disability: 66.6700 Lower Extremity Functional Score: 15 Goals Goals Goal 1:: I HEP Goal Time Frame: 8-12 Weeks Goal Progress: Progressing Goal 2:: Be able to walk without AD with CGA with bigger strides and no veering Goal Time Frame: 8-12 Weeks Goal Progress: Not Progressing Goal 3:: Be able to walk entire dept with rollator, CGA, Big steps and head turns on command without veering or stopping Goal Time Frame: 8-12 Weeks Goal Progress: Goal Met Goal 4:: Increase balance (score was 7 on eval) Goal Time Frame: 8-12 Weeks Goal Progress: Goal Met Goal 5:: Be able to complete X 10 standing opp arm and leg without messing up or LOB Goal Time Frame: 8-12 Weeks Goal Progress: Not Progressing Goal 6:: Be able to do 1 X 10 sit to stands with no arms to be able to get out of the chair consistently at home Goal Time Frame: 8-12 Weeks Goal Progress: Progressing Anticipated Interventions Anticipated Interventions Patient/Client Instruction: Educate patient on: Condition and Plan of Care For the Purpose of:: To improve muscle performance and motor function, To improve ability to perform ADL's, To increase tolerance to activity/condition/position, To improve performance and independence with ADL's, To decrease level of supervision to perform tasks, To improve ability of physical actions for home/community/work/leisure, To improve gait and locomotor functions, To improve endurance, To improve balance, To improve safety with gait and To assume or resume ADL's Therapeutic Exercise to Include: Strength training, Power training, Endurance training, Balance training, Coordination, Body mechanics, Postural training, Flexibilty training, Gait and locomotor training, Neuromotor development and Dynamic Lumbar Stabilization For the Purpose of:: To improve muscle performance and motor function, To improve ability to perform ADL's, To increase tolerance to activity/condition/position, To improve performance and independence with ADL's, To improve ability of physical actions for home/community/work/leisure, To improve gait and locomotor functions, To improve health of tissue, To improve endurance, To improve balance, To improve safety with gait and To assume or resume ADL's Functional Training to Include: Gait training For the Purpose of:: To improve gait and locomotor functions Re-Evaluation Ending Re-evaluation ending: Please do not hesitate to contact me at [phone] by phone or if you have questions or concerns regarding this new plan of care! Sincerely, Sally Peacock MPT
--- NOTE | 2024-09-30 12:05 | HP.PTDCSUM ---
Discharge Summary D/C summary: It has been my pleasure to treat SARAH DANG referred by Dr. Otis Lagos DO, with the diagnosis of PD for a total of 18 visit(s). Discharge Date: 09/30/24 Please see the following information for a summary of their discharge status. Subjective Subjective: Pt liked the PD class. She Overall Improvement % Improvement: 15 Objective Objective/Function: Pt was able to sit to stand on first attempt today using B UE Goals Goal 1:: I HEP Goal Progress: Goal Met Goal 2:: Be able to walk without AD with CGA with bigger strides and no veering Goal Progress: Not Progressing Goal 3:: Be able to walk entire dept with rollator, CGA, Big steps and head turns on command without veering or stopping Goal Progress: Goal Met Goal 4:: Increase balance (score was 7 on eval) Goal Progress: Goal Met Goal 5:: Be able to complete X 10 standing opp arm and leg without messing up or LOB Goal Progress: Not Progressing Goal 6:: Be able to do 1 X 10 sit to stands with no arms to be able to get out of the chair consistently at home Goal Progress: Progressing Plan Plan: DC PT to HEP and PD class D/C Information Discharge Comments: DC PT to HEP and PD class d/c sentence: If there are questions or concerns regarding this patient's physical therapy, please feel free to call me at [phone]. Thank you for the referral of this patient. Sincerely, Sally Peacock, MPT Balance/Gait/Functional tests Balance/Special Test Scores Functional Gait Assessment Score: 10 % Disability: 66.6700 Lower Extremity Functional Score: 18 Improvement % Improvement: 15
== END 2024-09-30 12:21 | disposition home or self-care (01) ==
LOC: PT 11:00
PROVIDERS: PCP Family Medicine; Referring Provider Family Medicine; Visit Provider Family Medicine
DX: G20.B2 Parkinson's disease with dyskinesia, with fluctuations (principal)
CPT/HCPCS: 97110; 97116; 97161; 97530

== ENCOUNTER → 2024-10-27 | Outpatient (CLI) | payer MEDICARE, SELFPAY | END | disposition home or self-care (01) | LOC: OPBI 13:36 | PROVIDERS: PCP Family Medicine; Referring Provider Family Medicine; Visit Provider Family Medicine | DX: N63.0 Unspecified lump in unspecified breast (principal) ==

== ENCOUNTER → 2024-11-03 | Outpatient (CLI) | payer MEDICARE, SELFPAY ==
--- NOTE | 2024-11-03 09:18 | US_ITS ---
EXAM: DIAG MAMM W/CAD, BILAT; BREAST LIMITED UNILATERAL; BILAT BRST MICKEY STAND ALONE 11/03/2024 CLINICAL HISTORY: 84-year-old female presents with palpable concern in the right breast and right bloody nipple discharge. Personal history of right breast cancer in 2012 status post lumpectomy and radiation. TECHNIQUE: Bilateral Diagnostic digital breast tomosynthesis with 2D and 3D images. Computer aided detection. Also, targeted right breast ultrasound was performed. COMPARISON: Prior exam(s) dated 05/29/2018, 06/02/2017. FINDINGS: MAMMOGRAM: TISSUE DENSITY: The breast tissue is composed of scattered area of fibroglandular density. Bilateral Breast Mammographic Findings: There is a triangle skin marker indicating the area of palpable concern in the upper-outer right breast. Underlying the skin marker are postsurgical changes and large dystrophic calcifications. Also, patient reports right bloody nipple discharge. There are no suspicious mammographic findings in the retroareolar region of the right breast. Otherwise, there are no suspicious findings in the right breast. There are no suspicious masses, grouped calcifications or architectural distortions in the left breast. ULTRASOUND: There are no suspicious sonographic findings in the retroareolar right breast to account for the patient's bloody nipple discharge. US/Breast Limited Unilateral IMPRESSION: 1. The palpable area of concern in the right breast correlates to postsurgical changes with associated large dystrophic calcifications. 2. There are no suspicious mammographic or sonographic findings to account for the patient's right bloody nipple discharge. Follow-up physical examination is recommended with possible sampling and cytolo gy of right nipple discharge. 3. There is no evidence of malignancy in the left breast. Right Breast: BIRADS 2 BENIGN FINDING. Left Breast: BIRADS 1 NEGATIVE. OVERALL FINAL ASSESSMENT: BIRADS 2 BENIGN FINDING. RECOMMENDATION: Recommendation: Appropriate action should be taken. A letter with findings and recommendations will be mailed to the patient. Reading Location: [facility]
== END | disposition home or self-care (01) ==
LOC: OPBI 09:16
PROVIDERS: PCP Family Medicine; Referring Provider Family Medicine; Visit Provider Family Medicine
DX: N63.10 Unspecified lump in the right breast, unspecified quadrant (principal); Z85.3 Personal history of malignant neoplasm of breast; N64.0 Fissure and fistula of nipple
CPT/HCPCS: 76642; 77062; 77066; G0279

== ENCOUNTER → 2025-05-31 | Outpatient (CLI) | payer MEDICARE, MEDICAID, SELFPAY ==
--- NOTE | 2025-05-31 15:00 | RAD_ITS ---
PROCEDURE: CHEST PA AND LATERAL 05/31/2025 REASON FOR EXAM: CONGESTION TECHNIQUE: Procedure Code: RADCXR Modality: DX Procedure: CHEST PA AND LATERAL FINDINGS: The heart is normal in size. The lungs are clear. No acute osseous abnormalities. RAD/Chest PA and Lateral IMPRESSION: NO ACUTE FINDINGS. Reading Location: [id number]
== END | disposition home or self-care (01) ==
PROVIDERS: PCP Family Medicine; Referring Provider Family Medicine; Visit Provider Family Medicine
DX: R63.4 Abnormal weight loss (principal)
CPT/HCPCS: 71046